=== PATIENT | female | born 1975 | race Caucasian/White ===

== ENCOUNTER 2017-10-18 13:41 | Inpatient (IN) | payer BC ==
[2017-10-18] MEDS ORDERED: FUROSEMIDE 40 MG TABLET PO ONE (14:46)
--- NOTE | 2017-10-18 14:48 | ER Document Report ---
ED Medical Screen (RME) - General Chief Complaint: Swelling of Lower Extremity Stated Complaint: SWELLING Time Seen by Provider: 10/18/17 14:41 - HPI Notes: 10/18/17 14:47 Increased bilateral lower extremity swelling since with shortness of breath patient states history of renal issues currently on hydrochlorothiazide for diuretic Past Medical History - Social History Chew tobacco use (# tins/day): No Frequency of alcohol use: Rare Drug Abuse: None - Past Medical History Cardiac Medical History: Reports: Hx Hypertension Endocrine Medical History: Reports: Hx Diabetes Mellitus Type 2 Renal/ Medical History: Denies: Hx Peritoneal Dialysis Past Surgical History: Reports: Hx Tonsillectomy Review of Systems - Review of Systems Constitutional: Other - Swelling shortness of breath Physical Exam - Vital signs Vitals: Temp Pulse Resp BP Pulse Ox 98.5 F 79 16 202/81 H 95 10/18/17 13:54 10/18/17 13:54 10/18/17 13:54 10/18/17 13:54 10/18/17 13:54 - Respiratory Respiratory status: No respiratory distress Chest status: Nontender Breath sounds: Normal Chest palpation: Normal Course - Vital Signs Vital signs: Temp Pulse Resp BP Pulse Ox 98.5 F 79 16 202/81 H 95 10/18/17 13:54 10/18/17 13:54 10/18/17 13:54 10/18/17 13:54 10/18/17 13:54
--- NOTE | 2017-10-18 15:42 | ER Document Report ---
ED Respiratory Problem - General Chief Complaint: Swelling of Lower Extremity Stated Complaint: SWELLING Time Seen by Provider: 10/18/17 14:41 Mode of Arrival: Ambulatory Information source: Patient Notes: 42 yo female with non smoker, DM2, HTN, anemic in the past, c/o swelling to legs and having trouble breathing since July. Has to sit up to breath at night, with cough, had to stick head in freezer a few times (had slumped down). When she walks across the lawn has to stop to catch breath, fatiqued, gets a flutter , aching dull substernal chest pain - a few times per day for 2 weeks("like a pulled muscle") Kidney function is declining. Swelling goes down while resting but never resolves. PCP: samanta peng. she is adjusting BP meds after the swelling started and HTN not in control. Lisinopril/HCTZ, Hydralazine 50mg BID (new), atenolol 50mg, omeprazole, insulin N 30 bid, regular 2-5 based on accucheck. [place] [employer] [place]. Heavy long periods this year. Denies rectal bleeding or abd. pain Past Medical History - General Information source: Patient - Social History Smoking Status: Never Smoker Chew tobacco use (# tins/day): No Frequency of alcohol use: Rare Drug Abuse: None Occupation: [employer] Lives with: Spouse/Significant other Family History: CAD, DM, Hypertension, Malignancy Patient has suicidal ideation: No Patient has homicidal ideation: No - Medical History Notes: anemia - Past Medical History Cardiac Medical History: Reports: Hx Hypertension Endocrine Medical History: Reports: Hx Diabetes Mellitus Type 2 Renal/ Medical History: Denies: Hx Peritoneal Dialysis Past Surgical History: Reports: Hx Tonsillectomy Review of Systems - Review of Systems Constitutional: No symptoms reported EENT: Other - allergy nasal congestion Cardiovascular: See HPI Respiratory: See HPI Gastrointestinal: No symptoms reported Genitourinary: No symptoms reported Female Genitourinary: No symptoms reported Musculoskeletal: No symptoms reported Skin: No symptoms reported Hematologic/Lymphatic: No symptoms reported Neurological/Psychological: No symptoms reported Physical Exam - Vital signs Vitals: Temp Pulse Resp BP Pulse Ox 98.5 F 79 16 202/81 H 95 10/18/17 13:54 10/18/17 13:54 10/18/17 13:54 10/18/17 13:54 10/18/17 13:54 Interpretation: Hypertensive - General General appearance: Appears well, Alert In distress: None - HEENT Head: Normocephalic, Atraumatic Eyes: Normal Conjunctiva: Normal Pupils: PERRL Mucous membranes: Normal Pharynx: Normal Neck: Supple. No: Lymphadenopathy - Respiratory Respiratory status: No respiratory distress Chest status: Nontender Breath sounds: Normal Chest palpation: Normal - Cardiovascular Rhythm: Regular Heart sounds: Normal auscultation Murmur: No - Abdominal Inspection: Normal Distension: No distension, Other - edema lower abdominal tissue Bowel sounds: Normal Tenderness: Nontender Organomegaly: No organomegaly - Back Back: Normal, Nontender - Extremities General upper extremity: Normal inspection, Nontender, Normal color, Normal temperature General lower extremity: Edema - bilateral legs pitting, extensive edema, Normal temperature, Normal weight bearing. No: Mikael's sign - Neurological Neuro grossly intact: Yes Cognition: Normal Orientation: AAOx4 Jonatan Coma Scale Eye Opening: Spontaneous [place] Coma Scale Verbal: Oriented [place] Coma Scale Motor: Obeys Commands [place] Coma Scale Total: 15 Speech: Normal Motor strength normal: LUE, RUE, LLE, RLE Sensory: Normal - Psychological Associated symptoms: Normal affect, Normal mood - Skin Skin Temperature: Warm Skin Moisture: Dry Skin Color: Normal Skin irregularity: negative: Rash Course - Re-evaluation Re-evalutation: 10/18/17 16:47 Chest x-ray shows mild cardiomegaly with borderline vascular prominence. Small pleural effusions. Creatinine is 1.79, hemaglobin is 8.3 , microcytic. She has not had it checked for 2 years, did have to take iron at that time. BNP is 14,600. Total protein and albumin are low. Troponin is negative. Discussed the case with Dr. Aguila who suggests the patient be admitted 10/18/17 17:01 Dr. Mccollum said to speak with Shavonne Kent for the admission and she will admit the patient to [facility]. - Vital Signs Vital signs: Temp Pulse Resp BP Pulse Ox 98.5 F 79 27 H 204/94 H 98 10/18/17 13:54 10/18/17 13:54 10/18/17 16:01 10/18/17 16:01 10/18/17 16:01 - Laboratory Result Diagrams: 10/18/17 15:30 10/18/17 15:30 Laboratory results interpreted by me: 10/18/17 10/18/17 10/18/17 15:30 15:30 15:30 RBC 3.60 L Hgb 8.3 L Hct 25.8 L MCV 72 L MCH 23.0 L RDW 16.7 H Chloride 112 H BUN 45 H Creatinine 1.79 H Est GFR ( Amer) 37 L Est GFR (Non-Af Amer) 31 L Glucose 178 H Creatine Kinase 280 H NT-Pro-B Natriuret Pep 25956 H Total Protein 5.8 L Albumin 2.8 L TSH 10/18/17 15:30 RBC Hgb Hct MCV MCH RDW Chloride BUN Creatinine Est GFR ( Amer) Est GFR (Non-Af Amer) Glucose Creatine Kinase NT-Pro-B Natriuret Pep Total Protein Albumin TSH 7.21 H Discharge - Discharge Clinical Impression: Peripheral edema, Cardiomegaly Anemia Qualifiers: Anemia type: iron deficiency Iron deficiency anemia type: unspecified iron deficiency Qualified Code(s): D50.9 - Iron deficiency anemia, unspecified Hypertension Qualifiers: Hypertension type: essential hypertension Qualified Code(s): I10 - Essential ( primary) hypertension CHF (congestive heart failure) Qualifiers: Heart failure type: unspecified Heart failure chronicity: unspecified Qualified Code(s): I50.9 - Heart failure, unspecified Hypothyroidism Qualifiers: Hypothyroidism type: unspecified Qualified Code(s): E03.9 - Hypothyroidism, unspecified Condition: Fair Disposition: ADMITTED INPATIENT Admitting Provider: Hospitalist Unit Admitted: [facility]
[2017-10-18 15:51] LABS: ABSOLUTE BASOPHILS # (AUTO) 0.1 10^3/uL (0.0-0.2); ABSOLUTE EOSINOPHILS # (AUTO) 0.1 10^3/uL (0.0-0.6); ABSOLUTE LYMPHOCYTES (AUTO) 1.7 10^3/uL (0.5-4.7); ABSOLUTE MONOCYTES (AUTO) 0.6 10^3/uL (0.1-1.4); ABSOLUTE NEUT (AUTO) 5.7 10^3/uL (1.7-8.2); BASOPHILS % (AUTO) 0.9 % (0-2); EOSINOPHILS % (AUTO) 0.9 % (0-6); HEMATOCRIT 25.8 % (36.0-47.0); HEMOGLOBIN 8.3 g/dL (12.0-15.5); LYMPHOCYTES % (AUTO) 20.4 % (13-45); MEAN CORPUSCULAR VOLUME 72 fl (80-97); MONOCYTES % (AUTO) 7.6 % (3-13); PLATELET COUNT 396 10^3/uL (150-450); RED CELL DISTRIBUTION WIDTH 16.7 % (11.5-14.0); SEGMENTED NEUTROPHILS % (AUTO) 70.2 % (42-78); TOTAL CELLS COUNTED % (AUTO) 100 %; WHITE BLOOD COUNT 8.1 10^3/uL (4.0-10.5)
[2017-10-18 16:02] LABS: ALANINE AMINOTRANSFERASE 21 U/L (9-52); ALBUMIN 2.8 g/dL (3.5-5.0); ALKALINE PHOSPHATASE 80 U/L (38-126); ANION GAP 9 (5-19); ASPARTATE AMINO TRANSFERASE 16 U/L (14-36); BILIRUBIN,DIRECT 0.2 mg/dL (0.0-0.4); BILIRUBIN,TOTAL 0.2 mg/dL (0.2-1.3); BLOOD UREA NITROGEN 45 mg/dL (7-20); CALCIUM 8.5 mg/dL (8.4-10.2); CARBON DIOXIDE 23 mmol/L (22-30); CHLORIDE 112 mmol/L (98-107); CREATINE KINASE 280 U/L (30-135); GLUCOSE 178 mg/dL (75-110); POTASSIUM 4.2 mmol/L (3.6-5.0); TOTAL PROTEIN 5.8 g/dL (6.3-8.2)
[2017-10-18] MEDS ORDERED: ASPIRIN 81 MG TABLET, CHEWABLE PO ONE (16:05)
[2017-10-18 16:14] LABS: CREATINE KINASE MB 2.78 ng/mL (<4.55); NT PRO BNP 14600 pg/mL (<125)
[2017-10-18 16:16] LABS: TROPONIN I < 0.012 ng/mL
--- NOTE | 2017-10-18 16:26 | RADIOLOGY REPORT (SQ) ---
EXAM DESCRIPTION: CHEST 2 VIEWS COMPLETED DATE/TIME: 10/18/2017 4:18 pm REASON FOR STUDY: sob leg swelling COMPARISON: None. EXAM PARAMETERS: NUMBER OF VIEWS: two views TECHNIQUE: Digital Frontal and Lateral radiographic views of the chest acquired. RADIATION DOSE: NA LIMITATIONS: none FINDINGS: LUNGS AND PLEURA: No opacities, masses or pneumothorax. Small bilateral pleural effusions . MEDIASTINUM AND HILAR STRUCTURES: No masses or contour abnormalities. HEART AND VASCULAR STRUCTURES: Mild cardiac enlargement. Borderline vascular prominence. BONES: No acute findings. HARDWARE: None in the chest. OTHER: No other significant finding. IMPRESSION: MILD CARDIOMEGALY WITH BORDERLINE VASCULAR PROMINENCE. SMALL PLEURAL EFFUSIONS. TECHNICAL DOCUMENTATION: JOB ID: [id number] [employer]- All Rights Reserved Reading location - IP/workstation name: [email or web address]
[2017-10-18] MEDS ORDERED: FUROSEMIDE INJ/PF 20 MG/2 ML SDV IV ONE (16:54)
[2017-10-18] MEDS ORDERED: ACETAMINOPHEN 325 MG TABLET PO PRN (17:12)
[2017-10-18] MEDS ORDERED: ONDANSETRON 4 MG TAB.RAPDIS PO PRN (17:12)
[2017-10-18] MEDS ORDERED: DEXTROSE 40% GEL 15 GM TUBE PO PRN ×2 (18:06)
[2017-10-18] MEDS ORDERED: DEXTROSE 50%-WATER 25 GM/50 ML DISP.SYRIN IV PRN ×2 (18:06)
[2017-10-18] MEDS ORDERED: GLUCAGON,HUMAN RECOMB 1 MG INJ IM PRN (18:06)
--- NOTE | 2017-10-18 18:35 | PDOC H&P ---
History of Present Illness Admission Date/PCP: 10/18/17 17:33 ALEIDA GUIDRY MD Patient complains of: Increasing shortness of breath, orthopnea and peripheral edema History of Present Illness: DAMIR LEE is a 42 year old female with past medical history of essential hypertension, dyslipidemia, morbid obesity, diabetes mellitus type 2 on insulin and anemia; who presents to [facility]'s emergency room this afternoon with complaints of increasing shortness of breath, orthopnea and increasing peripheral edema. She states she has had a nonproductive cough for the last 3 weeks. Last night she was unable to sleep lying down. She had to sleep in a recliner. She has had increasing lower extremity edema from pedal to her waist. She has been seeing a provider in [place] for her blood pressure which has been out of control. She states she is also experiencing heavy flow menstrual periods, last was 3 weeks ago. Patient has a significant family history of coronary artery disease in both parents who are from same. Her father from heart failure at 78. Her mother at age 72. She had a brother who age 28 secondary to drug overdose. 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 Past Medical History Cardiac Medical History: Reports: Hyperlipidema, Hypertension Pulmonary Medical History: Reports: None EENT Medical History: Reports: None Neurological Medical History: Reports: None Endocrine Medical History: Reports: Diabetes Mellitus Type 2 Renal/ Medical History: Reports: Chronic Kidney Disease Malignancy Medical History: Reports: None GI Medical History: Reports: None Musculoskeltal Medical History: Reports: None Skin Medical History: Reports: None Psychiatric Medical History: Reports: None Traumatic Medical History: Reports: None Hematology: Reports: Anemia Infectious Medical History: Reports: None Past Surgical History Past Surgical History: Reports: Tonsillectomy Social History Information Source: Patient Lives with: Family, Spouse/Significant other Smoking Status: Never Smoker Frequency of Alcohol Use: Rare Hx Recreational Drug Use: No - Advance Directive Resuscitation Status: Full Code Surrogate healthcare decision maker:: , Khang Family History Family History: CAD, DM, Hypertension, Malignancy Parental Family History Reviewed: Yes Children Family History Reviewed: Yes Sibling(s) Family History Reviewed.: Yes Review of Systems Constitutional: PRESENT: weight gain, other. ABSENT: chills, fever(s), headache (s), weight loss Eyes: ABSENT: visual disturbances Ears: ABSENT: hearing changes Cardiovascular: PRESENT: dyspnea on exertion, edema, orthropnea. ABSENT: chest pain, palpitations Respiratory: PRESENT: cough. ABSENT: hemoptysis Gastrointestinal: ABSENT: abdominal pain, constipation, diarrhea, hematemesis, hematochezia, nausea, vomiting Genitourinary: ABSENT: dysuria, hematuria Musculoskeletal: ABSENT: joint swelling Integumentary: ABSENT: rash, wounds Neurological: ABSENT: abnormal gait, abnormal speech, confusion, dizziness, focal weakness, syncope Psychiatric: ABSENT: anxiety, depression, homidical ideation, suicidal ideation Endocrine: ABSENT: cold intolerance, heat intolerance, polydipsia, polyuria Hematologic/Lymphatic: ABSENT: easy bleeding, easy bruising Physical Exam Vital Signs: Temp Pulse Resp BP Pulse Ox 98.5 F 79 27 H 204/94 H 98 10/18/17 13:54 10/18/17 13:54 10/18/17 16:01 10/18/17 16:01 10/18/17 16:01 General appearance: PRESENT: no acute distress, morbidly obese, well-developed, well-nourished Head exam: PRESENT: atraumatic, normocephalic Eye exam: PRESENT: conjunctiva pink, EOMI, PERRLA. ABSENT: scleral icterus Ear exam: PRESENT: normal external ear exam Mouth exam: PRESENT: moist, tongue midline Neck exam: ABSENT: carotid bruit, JVD, lymphadenopathy, thyromegaly Respiratory exam: PRESENT: crackles - bibasilar, symmetrical, unlabored Cardiovascular exam: PRESENT: RRR. ABSENT: diastolic murmur, rubs, systolic murmur Pulses: PRESENT: normal dorsalis pedis pul Vascular exam: PRESENT: normal capillary refill GI/Abdominal exam: PRESENT: normal bowel sounds, soft. ABSENT: distended, guarding, mass, organolmegaly, rebound, tenderness Rectal exam: PRESENT: deferred Extremities exam: PRESENT: other - +3 edema from pedal to mid thighs Musculoskeletal exam: PRESENT: ambulatory, full ROM, normal inspection Neurological exam: PRESENT: alert, awake, oriented to person, oriented to place , oriented to time, oriented to situation, CN II-XII grossly intact. ABSENT: motor sensory deficit Psychiatric exam: PRESENT: appropriate affect, normal mood. ABSENT: homicidal ideation, suicidal ideation Skin exam: PRESENT: dry, intact, warm. ABSENT: cyanosis, rash Results Impressions: Chest X-Ray 10/18/17 14:46 IMPRESSION: MILD CARDIOMEGALY WITH BORDERLINE VASCULAR PROMINENCE. SMALL PLEURAL EFFUSIONS. Assessment & Plan - Diagnosis (1) CHF (congestive heart failure) Qualifiers: Heart failure type: unspecified Heart failure chronicity: unspecified Qualified Code(s): I50.9 - Heart failure, unspecified Is this a current diagnosis for this admission?: Yes Plan: We will aggressively diuresed with Lasix 40 mg IV [place] [address]. He has had poorly controlled hypertension. Has been following with a primary care provider in [place] regularly. She has noted a 15-20 pound weight gain in the last month. She now has orthopnea. She spent last night sleeping in a recliner. She has had a nonproductive cough for the last 3 weeks. Cardiology consult was placed. Dr. Paniagua will see the patient in consult. His thoracic echo was ordered. (2) Hypertension Qualifiers: Hypertension type: essential hypertension Qualified Code(s): I10 - Essential (primary) hypertension Is this a current diagnosis for this admission?: Yes Plan: Patient will be placed on metoprolol 50 mg twice daily, losartan 50 mg daily and hydralazine 10 mg IV every 6 hours as needed for systolic BP greater than 180. (3) Cardiomegaly Is this a current diagnosis for this admission?: Yes Plan: Cardiomegaly on chest x-ray. Increased pulmonary vascular congestion. Echo is pending (4) Anemia Qualifiers: Anemia type: iron deficiency Iron deficiency anemia type: unspecified iron deficiency Qualified Code(s): D50.9 - Iron deficiency anemia, unspecified Is this a current diagnosis for this admission?: Yes Plan: Patient has had a history of iron deficiency anemia as well as menorrhagia for the last year. Anemia studies are placed for the a.m. (5) Hypothyroidism Qualifiers: Hypothyroidism type: unspecified Qualified Code(s): E03.9 - Hypothyroidism , unspecified Is this a current diagnosis for this admission?: Yes Plan: She has an elevated TSH of 7.4, obtained free T3 and T4 in the a.m. (6) Peripheral edema Is this a current diagnosis for this admission?: Yes Plan: Aimee franklin (7) Diabetes mellitus type 2 in obese Is this a current diagnosis for this admission?: Yes Plan: Continue patient's insulin dose and sliding scale insulin coverage - Time Time Spent: 50 to 70 Minutes Critical Time spent with patient: 25-34 minutes Medications reviewed and adjusted accordingly: Yes - Inpatient Certification Based on my medical assessment, after consideration of the patient's comorbidities, presenting symptoms, or acuity I expect that the services needed warrant INPATIENT care.: Yes I certify that my determination is in accordance with my understanding of Medicare's requirements for reasonable and necessary INPATIENT services [42 CFR 412.3e].: Yes Medical Necessity: Failure to Improve With Outpatient Therapy, Significant Comorbidiites Make Outpatient Treatment Too Risky
--- NOTE | 2017-10-18 18:54 | PDOC CONSULTATION ---
Consultation Consult Date: 10/18/17 Attending physician:: KORY CLAROS Consult reason:: Shortness of breath and severe hypertension History of Present Illness Admission Date/PCP: 10/18/17 17:33 ALEIDA GUIDRY MD Patient complains of: Shortness of breath and severe hypertension History of Present Illness: DAMIR LEE is a 42 year old female with past medical history of essential hypertension, dyslipidemia, morbid obesity, diabetes mellitus type 2 on insulin and anemia; who presents to [facility]'s emergency room this afternoon with complaints of increasing shortness of breath, orthopnea and increasing peripheral edema. She states she has had a nonproductive cough for the last 3 weeks. Last night she was unable to sleep lying down. She had to sleep in a recliner. She has had increasing lower extremity edema from pedal to her waist. She has been seeing a provider in [place] for her blood pressure which has been out of control. She states she is also experiencing heavy flow menstrual periods, last was 3 weeks ago. Patient has a significant family history of coronary artery disease in both parents who are from [place]. Her father from heart failure at 78. Her mother at age 72. She had a brother who age 28 secondary to drug overdose. 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 This history obtained by the hospitalist was reviewed and confirmed. Patient has difficult to control high blood pressure. Patient denied any recent fever or chills. Patient denies any chest pain. Patient describes some difficulty with staying asleep. She does snore but lightly. Past Medical History Cardiac Medical History: Reports: Hyperlipidema, Hypertension Pulmonary Medical History: Reports: None EENT Medical History: Reports: None Neurological Medical History: Reports: None Endocrine Medical History: Reports: Diabetes Mellitus Type 2 Renal/ Medical History: Reports: Chronic Kidney Disease Malignancy Medical History: Reports: None GI Medical History: Reports: None Musculoskeltal Medical History: Reports: None Skin Medical History: Reports: None Psychiatric Medical History: Reports: None Traumatic Medical History: Reports: None Hematology: Reports: Anemia Infectious Medical History: Reports: None Past Surgical History Past Surgical History: Reports: Tonsillectomy Social History Information Source: Patient Lives with: Family, Spouse/Significant other Smoking Status: Never Smoker Frequency of Alcohol Use: Rare Hx Recreational Drug Use: No - Advance Directive Resuscitation Status: Full Code Surrogate healthcare decision maker:: Patient's is the surrogate decision-maker Family History Family History: CAD, DM, Hypertension, Malignancy Parental Family History Reviewed: Yes Children Family History Reviewed: Yes Sibling(s) Family History Reviewed.: Yes Review of Systems Review of Systems: Please see history of present illness and past medical history as wall. Constitutional: No fever or chills reported. Complains of fatigue and tiredness. Head : No recent chronic headaches, recent head injury. Eyes: No recent eye pain, diplopia, redness, discharge, acute visual changes. Ears: No recent chronic ear pain, acute hearing loss, ear discharge. Oral cavity: No recent ulcerations, bleeding, oral cavity discomfort. Neck: No recent acute neck pain reported. Hematologic: No recent easy bruising or bleeding. Lymphatic: No recent lymph node enlargement reported. Cardiovascular system review: See history of present illness. Respiratory system review: No hemoptysis or blood clots in the lungs reported. Mild Shortness of breath on exertion Gastrointestinal system review: Negative for any recent acute hematemesis, melena. Genitourinary system review: No recent acute or chronic hematuria, flank pain, UTI etc. reported. Skin system review: Negative for any recent abnormal bruising, no rash, no pruritus reported. Neurologic: No prior history of strokes, mini strokes, seizure disorder. Psychologic: No history of major psychosis or major depression reported. Musculoskeletal: Minor aches and pains reported. No acute joint swelling reported. Endocrine: No recent polyuria, polydipsia, recent heat or cold intolerance. Physical Exam Vital Signs: Temp Pulse Resp BP Pulse Ox 98.5 F 79 27 H 204/94 H 98 10/18/17 13:54 10/18/17 13:54 10/18/17 16:01 10/18/17 16:01 10/18/17 16:01 Exam: GENERAL: well-nourished and in no acute distress. Alert and oriented x3 HEAD: Atraumatic, normocephalic. EYES: Pupils equal round and reactive to light, extraocular movements intact, sclera anicteric, conjunctiva are normal. ENT: TMs normal, nares patent, oropharynx clear without exudates. Moist mucous membranes. No oral ulcerations or bleeding gums noted NECK: supple without lymphadenopathy. Trachea is central. No cervical or axillary lymphadenopathy noted. Carotids are 2+, JVD 10-12 cm LUNGS: Respiration seems nonlabored, no significant accessory muscle action noted. Bibasilar fine crackles are noted. No wheezes rales or rhonchi noted. No significant dullness noted on percussion. CHEST: Palpation of the chest wall shows no significant chest wall tenderness. HEART: [place]OV[place] HAULER, No PSH, 1/6 KARAN aortic area, 1/6 rivero systolic murmur mitral area, no rubs, no gallops. ABDOMEN: Soft, no significant tenderness appreciated, normoactive bowel sounds. No guarding, no rebound. No rigidity noted . No masses appreciated. EXTREMITIES: Pedal pulses are 1-2+, no calf tenderness noted. No clubbing or cyanosis. 2-3+ pedal edema noted NEUROLOGICAL: Focused neurological exam showed no significant neurologic deficit. Normal speech, no focal weakness appreciated. PSYCH: Normal mood, normal affect. Judgment and insight within normal limits. SKIN: No significant ecchymosis, skin is noted to be warm. MUSCULOSKELETAL EXAM: No significant acute joint swelling noted. Results EKG Comments: Sinus rhythm, nonprogression of R-wave anterior precordial lead, cannot rule out prior anteroseptal IA or anterior IA age indeterminate. Impressions: Chest X-Ray 10/18/17 14:46 IMPRESSION: MILD CARDIOMEGALY WITH BORDERLINE VASCULAR PROMINENCE. SMALL PLEURAL EFFUSIONS. Assessment & Plan - Diagnosis (1) CHF (congestive heart failure) Qualifiers: Heart failure type: unspecified Heart failure chronicity: unspecified Qualified Code(s): I50.9 - Heart failure, unspecified Is this a current diagnosis for this admission?: Yes (2) Cardiomegaly Is this a current diagnosis for this admission?: Yes (3) Diabetes mellitus type 2 in obese Is this a current diagnosis for this admission?: Yes (4) Hypertension Qualifiers: Hypertension type: essential hypertension Qualified Code(s): I10 - Essential (primary) hypertension Is this a current diagnosis for this admission?: Yes (5) Peripheral edema Is this a current diagnosis for this admission?: Yes (6) Renal insufficiency Is this a current diagnosis for this admission?: Yes (7) Anemia Qualifiers: Anemia type: iron deficiency Iron deficiency anemia type: unspecified iron deficiency Qualified Code(s): D50.9 - Iron deficiency anemia, unspecified Is this a current diagnosis for this admission?: Yes - Notes Notes: CHF: Patient noted to be in CHF based on symptoms, elevated BNP, pulmonary vascular congestion and cardiomegaly. Exact etiology not clear but could be related to hypertensive heart disease, systolic and/or diastolic dysfunction, valvular heart disease. A 2D echocardiogram will be obtained to evaluate this. In the meantime agree with IV diuretic therapy, maintain oxygenation, DVT prophylaxis etc. Cardiomegaly: Noted on chest x-ray. To be evaluated further with a 2D echocardiogram. Diabetes: Recommend good control of blood sugar. However should avoid any hypoglycemia and hyperglycemia. Patient being expertly managed by primary care M.D/hospitalist Hypertension: Reasonably well controlled. Blood pressure goal in this patient is 135/85 or less. This was discussed with the patient. Currently blood pressure under reasonable control. Better medication for this patient are ROSALIND inhibitor/ARB/beta cookie etc. discussed side effects of uncontrolled hypertension and also severe hypotension. Renal insufficiency: Patient seems to have chronic kidney disease stage 3. Avoid any nephrotoxic agents, IV contrast agent dye etc. consider nephrology evaluation. Presence of chronic kidney disease is a prognostic factor. Anemia: Patient describes heavy menstruation bleed. Follow expectantly. May recommend evaluation for iron insufficiency. - Time Time Spent: 30 to 50 Minutes - CODE STATUS was discussed, patient remains full code. Surrogate decision-maker unchanged. Multiple medical problems were addressed. More than 50% of the time spent coordinating care, discussing management plans with involved caregivers. Management plans discussed with involved personnels. Medical decision making was of moderate to high complexity , patient's has multiple comorbidities. Medications reviewed and adjusted accordingly: Yes
[2017-10-18 20:28] LABS: APPEARANCE,URINE CLEAR; BILIRUBIN,URINE NEGATIVE (NEGATIVE); COLOR,URINE STRAW; GLUCOSE, URINE 150 mg/dL (NEGATIVE); KETONES,URINE NEGATIVE (NEGATIVE); LEUKOCYTE ESTERASE,URINE TRACE (NEGATIVE); NITRITE,URINE NEGATIVE (NEGATIVE); PROTEIN,URINE 100 mg/dL (NEGATIVE); URINE SPECIFIC GRAVITY 1.008; UROBILINOGEN,URINE NEGATIVE mg/dL (<2.0)
[2017-10-18] MEDS: FUROSEMIDE INJ/PF 40 MG/4 ML SDV IV SCH (21:01)
[2017-10-18] MEDS: FAMOTIDINE 20 MG TABLET PO SCH (21:10)
[2017-10-18] MEDS: HEPARIN SOD (PORCINE) 5,000 UNIT/ML 1 ML SYRINGE SUBCUT SCH (21:10)
[2017-10-18] MEDS: METOPROLOL TARTRATE 50 MG TABLET PO SCH (21:10)
--- NOTE | 2017-10-18 22:55 | EKG REPORT ---
SEVERITY:- ABNORMAL ECG - SINUS RHYTHM BORDERLINE R WAVE PROGRESSION, ANTERIOR LEADS NONSPECIFIC T ABNORMALITIES, LATERAL LEADS BORDERLINE PROLONGED QT INTERVAL : Confirmed by: Oriana Paniagua 18-Oct-2017 22:54:48
[2017-10-18] MEDS: HYDRALAZINE HCL INJ/PF 20 MG/1 ML SDV IV PRN (23:08)
[2017-10-19] MEDS: HEPARIN SOD (PORCINE) 5,000 UNIT/ML 1 ML SYRINGE SUBCUT SCH ×3 (05:43→21:53)
[2017-10-19 07:15] LABS: ABSOLUTE EOSINOPHILS # (AUTO) 0.1 10^3/uL (0.0-0.6); ABSOLUTE LYMPHOCYTES (AUTO) 1.2 10^3/uL (0.5-4.7); ABSOLUTE MONOCYTES (AUTO) 0.6 10^3/uL (0.1-1.4); ABSOLUTE NEUT (AUTO) 3.6 10^3/uL (1.7-8.2); ABSOLUTE RETICS # 0.054 10^6/uL (0.028-0.122); BASOPHILS % (AUTO) 0.9 % (0-2); EOSINOPHILS % (AUTO) 1.7 % (0-6); HEMATOCRIT 25.1 % (36.0-47.0); LYMPHOCYTES % (AUTO) 21.6 % (13-45); MEAN CORPUSCULAR HEMOGLOBIN 22.7 pg (27.0-33.4); MEAN CORPUSCULAR HGB CONC 31.7 g/dL (32.0-36.0); MEAN CORPUSCULAR VOLUME 72 fl (80-97); MONOCYTES % (AUTO) 10.5 % (3-13); PLATELET COUNT 341 10^3/uL (150-450); RED BLOOD COUNT 3.51 10^6/uL (3.72-5.28); RED CELL DISTRIBUTION WIDTH 16.5 % (11.5-14.0); RETICULOCYTE COUNT (AUTO) 1.54 % (0.66-2.85); SEGMENTED NEUTROPHILS % (AUTO) 65.3 % (42-78); TOTAL CELLS COUNTED % (AUTO) 100 %; WHITE BLOOD COUNT 5.6 10^3/uL (4.0-10.5)
[2017-10-19 07:35] LABS: ANION GAP 9 (5-19); BLOOD UREA NITROGEN 48 mg/dL (7-20); CALCIUM 8.6 mg/dL (8.4-10.2); CARBON DIOXIDE 24 mmol/L (22-30); CHLORIDE 112 mmol/L (98-107); CHOLESTEROL 248.67 mg/dL (0-200); GLUCOSE 176 mg/dL (75-110); IRON(TIBC) 15.8 ug/dL (37-170); POTASSIUM 4.1 mmol/L (3.6-5.0); SODIUM 144.5 mmol/L (137-145); TRIGLYCERIDES 173 mg/dL (<150)
[2017-10-19 07:47] LABS: DIRECT LDL 161 mg/dL (<100)
[2017-10-19 07:53] LABS: TROPONIN I 0.015 ng/mL
[2017-10-19] MEDS: HYDRALAZINE HCL INJ/PF 20 MG/1 ML SDV IV PRN (08:18)
[2017-10-19 08:44] LABS: VLDL CHOLESTEROL 34.6 mg/dL (10-31)
[2017-10-19] MEDS: METOPROLOL TARTRATE 50 MG TABLET PO SCH ×2 (09:05→21:53)
[2017-10-19] MEDS: FUROSEMIDE INJ/PF 40 MG/4 ML SDV IV SCH ×2 (09:06→21:57)
[2017-10-19] MEDS: FAMOTIDINE 20 MG TABLET PO SCH ×2 (09:06→21:58)
[2017-10-19] MEDS: LOSARTAN POTASSIUM 50 MG TABLET PO SCH (09:06)
[2017-10-19] MEDS: ASPIRIN 81 MG TABLET, ENT COATED PO SCH (09:06)
[2017-10-19] MEDS: INSULIN LISPRO 100 UNIT/ML 3 ML VIAL SUBCUT PRN ×3 (09:07→22:03)
[2017-10-19 09:32] LABS: FREE T4 (FREE THYROXINE) 1.29 ng/dL (0.78-2.19)
[2017-10-19 09:45] LABS: THYROID STIMULATING HORMONE 4.78 uIU/mL (0.47-4.68)
[2017-10-19] MEDS ORDERED: GLUCAGON,HUMAN RECOMB 1 MG INJ IM PRN (10:53)
[2017-10-19] MEDS ORDERED: DEXTROSE 50%-WATER 25 GM/50 ML DISP.SYRIN IV PRN ×2 (10:53)
[2017-10-19] MEDS ORDERED: DEXTROSE 40% GEL 15 GM TUBE PO PRN ×2 (10:53)
[2017-10-19] MEDS: IRON POLYSACCHARIDES COMPLEX 150 MG CAPSULE PO SCH (14:49)
[2017-10-19] MEDS: MAGNESIUM SULFATE/D5W 1 GM/100 ML RTUPB IV SCH ×2 (14:52→16:04)
--- NOTE | 2017-10-19 17:20 | PDOC PROGRESS REPORT ---
Subjective Progress Note for:: 10/19/17 Subjective:: Patient is seen resting in bed. She states she is tired but otherwise feels better than admission. She denies any chest pain or dyspnea at rest. She is short of breath with exertion. She denies any nausea, vomiting or abdominal pain. She denies any fevers or chills. She denies any significant arthralgias or myalgias. Remaining review of systems is negative Reason For Visit: HEART FAILURE,HYPERTENSIVE URGENCY Physical Exam Vital Signs: Temp Pulse Resp BP Pulse Ox 98.0 F 78 16 153/72 H 99 10/19/17 12:01 10/19/17 14:00 10/19/17 12:01 10/19/17 12:01 10/19/17 12:01 Intake & Output 10/18/17 10/19/17 10/20/17 06:59 06:59 06:59 Intake Total 371 200 Output Total 2500 1000 Balance -2129 -800 Weight 113 kg General appearance: PRESENT: no acute distress, morbidly obese, well-developed, well-nourished Head exam: PRESENT: atraumatic, normocephalic Eye exam: PRESENT: conjunctiva pink, EOMI, PERRLA. ABSENT: scleral icterus Ear exam: PRESENT: normal external ear exam Mouth exam: PRESENT: moist, tongue midline Neck exam: ABSENT: carotid bruit, JVD, lymphadenopathy, thyromegaly Respiratory exam: PRESENT: decreased breath sounds, symmetrical, unlabored Cardiovascular exam: PRESENT: +S1, +S2 Pulses: PRESENT: normal carotid pulses, normal radial pulses Vascular exam: PRESENT: normal capillary refill GI/Abdominal exam: PRESENT: normal bowel sounds, soft. ABSENT: distended, guarding, mass, organolmegaly, rebound, tenderness Rectal exam: PRESENT: deferred Extremities exam: PRESENT: full ROM. ABSENT: calf tenderness, clubbing, pedal edema Neurological exam: PRESENT: alert, awake, oriented to person, oriented to place , oriented to time, oriented to situation, CN II-XII grossly intact. ABSENT: motor sensory deficit Psychiatric exam: PRESENT: appropriate affect, normal mood. ABSENT: homicidal ideation, suicidal ideation Skin exam: PRESENT: dry, intact, warm. ABSENT: cyanosis, rash Results Laboratory Results: 10/19/17 06:43 10/19/17 06:43 10/18/17 10/19/17 10/19/17 20:05 06:43 06:43 WBC 5.6 RBC 3.51 L Hgb 8.0 L Hct 25.1 L MCV 72 L MCH 22.7 L MCHC 31.7 L RDW 16.5 H Plt Count 341 Seg Neutrophils % 65.3 Lymphocytes % 21.6 Monocytes % 10.5 Eosinophils % 1.7 Basophils % 0.9 Absolute Neutrophils 3.6 Absolute Lymphocytes 1.2 Absolute Monocytes 0.6 Absolute Eosinophils 0.1 Absolute Basophils 0.0 Retic Count (auto) 1.54 Absolute Retic 0.054 Sodium 144.5 Potassium 4.1 Chloride 112 H Carbon Dioxide 24 Anion Gap 9 BUN 48 H Creatinine 1.81 H Est GFR ( Amer) 37 L Est GFR (Non-Af Amer) 31 L Glucose 176 H Calcium 8.6 Magnesium 1.5 L Iron 15.8 L TIBC 282 % Saturation 6 Ferritin 10.60 Triglycerides 173 H Cholesterol 248.67 H LDL Cholesterol Direct 161 H VLDL Cholesterol 34.6 H HDL Cholesterol 56 Vitamin B12 311.0 Folate 10.70 TSH Free T4 Free T3 pg/mL Urine Color STRAW Urine Appearance CLEAR Urine pH 6.0 Ur Specific [place] 1.008 Urine Protein 100 H Urine Glucose (UA) 150 H Urine Ketones NEGATIVE Urine Blood SMALL H Urine Nitrite NEGATIVE Ur Leukocyte Esterase TRACE H Urine WBC (Auto) 3 Urine RBC (Auto) 2 10/19/17 06:43 WBC RBC Hgb Hct MCV MCH MCHC RDW Plt Count Seg Neutrophils % Lymphocytes % Monocytes % Eosinophils % Basophils % Absolute Neutrophils Absolute Lymphocytes Absolute Monocytes Absolute Eosinophils Absolute Basophils Retic Count (auto) Absolute Retic Sodium Potassium Chloride Carbon Dioxide Anion Gap BUN Creatinine Est GFR ( Amer) Est GFR (Non-Af Amer) Glucose Calcium Magnesium Iron TIBC % Saturation Ferritin Triglycerides Cholesterol LDL Cholesterol Direct VLDL Cholesterol HDL Cholesterol Vitamin B12 Folate TSH 4.78 H Free T4 1.29 Free T3 pg/mL 4.00 Urine Color Urine Appearance Urine pH Ur Specific [place] Urine Protein Urine Glucose (UA) Urine Ketones Urine Blood Urine Nitrite Ur Leukocyte Esterase Urine WBC (Auto) Urine RBC (Auto) 10/18/17 10/19/17 10/19/17 19:15 00:58 06:43 Troponin I < 0.012 0.012 0.015 NT-Pro-B Natriuret Pep 72813 H 10/19/17 12:32 Troponin I 0.016 NT-Pro-B Natriuret Pep Impressions: Chest X-Ray 10/18/17 14:46 IMPRESSION: MILD CARDIOMEGALY WITH BORDERLINE VASCULAR PROMINENCE. SMALL PLEURAL EFFUSIONS. Assessment & Plan - Diagnosis (1) CHF (congestive heart failure) Qualifiers: Heart failure type: unspecified Heart failure chronicity: unspecified Qualified Code(s): I50.9 - Heart failure, unspecified Is this a current diagnosis for this admission?: Yes Plan: We will aggressively diuresed with Lasix 40 mg IV [place] [address]. He has had poorly controlled hypertension. Has been following with a primary care provider in [place] regularly. She has noted a 15-20 pound weight gain in the last month. She now has orthopnea. She has been sleeping in a chair at home She has had a nonproductive cough for the last 3 weeks. Cardiology consult was placed. Dr. Paniagua will see the patient in consult. Transthoracic echo was ordered. (2) Hypertension Qualifiers: Hypertension type: essential hypertension Qualified Code(s): I10 - Essential (primary) hypertension Is this a current diagnosis for this admission?: Yes Plan: Patient will be placed on metoprolol 50 mg twice daily, losartan 50 mg daily and hydralazine 10 mg IV every 6 hours as needed for systolic BP greater than 180. (3) Cardiomegaly Is this a current diagnosis for this admission?: Yes Plan: Cardiomegaly on chest x-ray. Increased pulmonary vascular congestion. Echo is pending (4) Anemia Qualifiers: Anemia type: iron deficiency Iron deficiency anemia type: unspecified iron deficiency Qualified Code(s): D50.9 - Iron deficiency anemia, unspecified Is this a current diagnosis for this admission?: Yes Plan: Patient has had a history of iron deficiency anemia as well as menorrhagia for the last year. Anemia studies are placed for the a.m. (5) Hypothyroidism Qualifiers: Hypothyroidism type: unspecified Qualified Code(s): E03.9 - Hypothyroidism , unspecified Is this a current diagnosis for this admission?: Yes Plan: She has an elevated TSH of 7.4, obtained free T3 and T4 in the a.m. (6) Peripheral edema Is this a current diagnosis for this admission?: Yes Plan: Diurese bid (7) Diabetes mellitus type 2 in obese Is this a current diagnosis for this admission?: Yes Plan: Continue patient's insulin dose and sliding scale insulin coverage - Time Time Spent with patient: 25-34 minutes Total Critical Time (Minutes): 20 Medications reviewed and adjusted accordingly: Yes - Inpatient Certification Based on my medical assessment, after consideration of the patient's comorbidities, presenting symptoms, or acuity I expect that the services needed warrant INPATIENT care.: Yes I certify that my determination is in accordance with my understanding of Medicare's requirements for reasonable and necessary INPATIENT services [42 CFR 412.3e].: Yes Medical Necessity: Failure to Improve With Outpatient Therapy, Significant Comorbidiites Make Outpatient Treatment Too Risky, Need Close Monitoring Due to Risk of Patient Decompensation
--- NOTE | 2017-10-19 17:37 | XCELERA REPORT ---
[address] [address] Transthoracic Echocardiogram Report Name: DAMIR LEE Age: 42 yrs Gender: Female : 1975 Patient Status: Inpatient Patient Location: [address] [place] [address] Study Date: 10/19/2017 03:01 PM Procedure: A complete two-dimensional transthoracic echocardiogram was performed (2D, M-mode, spectral and color flow Doppler). The study was technically adequate with some images being suboptimal in quality. Reason For Study: Cardiomegaly, increasing peripheral edema Ordering Physician: KORY JIMENEZ Performed By: Lin Alvarez Interpretation Summary The left ventricular ejection fraction is within normal limits. There is mild to moderate concentric left ventricular hypertrophy. The left ventricle is grossly normal size. Doppler measurements suggest pseudonormalized left ventricular relaxation, which is associated with grade II/IV or mild to moderate diastolic dysfunction Wall motion cannot be accurately commented on, but no definite regional wall motion abnormalities noted. The right ventricle is grossly normal size. The right ventricular systolic function is normal. The right atrium is normal in size The left atrium is mildly dilated. There is no mitral valve stenosis. There is a trace amount of mitral regurgitation No aortic regurgitation is present. There is no aortic valve stenosis There is a trace to mild amount of tricuspid regurgitation There is mild to moderate pulmonary hypertension by echo Right ventricular systolic pressure is estimated to be elevated at 40- 50mmHg. The aortic root is not well visualized but is probably normal size. The inferior vena cava was not well visualized Small pericardial effusion. There are no echocardiographic or Doppler indications for cardiac tamponade MMode/2D Measurements & Calculations RVDd: 3.1 cm LVIDd: 5.6 cmFS: 31.7 % Ao root diam: 2.3 cm IVSd: 1.1 cm LVIDs: 3.8 cmEDV(Teich): 151.9 ml Ao root area: 4.1 cm2 LVPWd: 1.3 cmESV(Teich): 62.1 ml EF(Teich): 59.1 % LVOT diam: 1.3 cm LVOT area: 1.3 cm2 Doppler Measurements & Calculations MV E max lyle: MV dec slope: Ao V2 max: LV V1 max P.4 cm/sec 146.0 cm/sec 6.1 mmHg MV A max lyle: 553.0 cm/sec2 Ao max PG: LV V1 max: 101.8 cm/sec MV dec time: 8.5 mmHg 123.8 cm/sec MV E/A: 0.98 0.18 sec JIM(V,D): 1.1 cm2 PA V2 max: TR max lyle: 109.8 cm/sec 312.9 cm/sec PA max P.8 mmHgTR max P.2 mmHg Left Ventricle The left ventricle is grossly normal size. There is mild to moderate concentric left ventricular hypertrophy. The left ventricular ejection fraction is within normal limits. Doppler measurements suggest pseudonormalized left ventricular relaxation, which is associated with grade II/IV or mild to moderate diastolic dysfunction. Wall motion cannot be accurately commented on, but no definite regional wall motion abnormalities noted. Right Ventricle The right ventricle is grossly normal size. There is normal right ventricular wall thickness. The right ventricular systolic function is normal. Atria The right atrium is normal in size. The left atrium is mildly dilated. Interarterial septum not well visualized and not well dopplered. Cannot comment on ASD/PFO presence. Mitral Valve The mitral valve is grossly normal. There is no mitral valve stenosis. There is a trace amount of mitral regurgitation. Aortic Valve The aortic valve is grossly normal. There is no aortic valve stenosis. No aortic regurgitation is present. Tricuspid Valve The tricuspid valve is not well visualized, but is grossly normal. There is no tricuspid stenosis. There is a trace to mild amount of tricuspid regurgitation. There is mild to moderate pulmonary hypertension by echo. Right ventricular systolic pressure is estimated to be elevated at 40- 50mmHg. Pulmonic Valve The pulmonic valve is not well visualized. Great Vessels The aortic root is not well visualized but is probably normal size. The inferior vena cava was not well visualized. Effusions Small pericardial effusion. There are no echocardiographic or Doppler indications for cardiac tamponade. : KORY JIMENEZ > Oriana Paniagua
--- NOTE | 2017-10-19 20:22 | PDOC PROGRESS REPORT ---
Subjective Progress Note for:: 10/19/17 Subjective:: Patient seems to be doing better with gradual improvement. Pt is denying any chest arm or neck discomfort. Patient denying any PND, orthopnea. Patient denied any sustained palpitations, dizziness, syncope, near syncope. Patient denying any fever chills. Patient denying any other significant discomfort. Patient is maintaining sinus rhythm. Review of systems: Rest review of systems negative. Medications: Medications have been reviewed. Reason For Visit: HEART FAILURE,HYPERTENSIVE URGENCY Physical Exam Vital Signs: Temp Pulse Resp BP Pulse Ox 98.0 F 78 16 153/72 H 99 10/19/17 12:01 10/19/17 14:00 10/19/17 12:01 10/19/17 12:01 10/19/17 12:01 Intake & Output 10/18/17 10/19/17 10/20/17 06:59 06:59 06:59 Intake Total 371 866 Output Total 2500 1600 Balance -2129 -734 Weight 113 kg 113 kg Exam: GENERAL: well-nourished and in no acute distress. Alert and oriented x3 HEAD: Atraumatic, normocephalic. EYES: Pupils equal round and reactive to light, extraocular movements intact, sclera anicteric, conjunctiva are normal. ENT: TMs normal, nares patent, oropharynx clear without exudates. Moist mucous membranes. No oral ulcerations or bleeding gums noted NECK: supple without lymphadenopathy. Trachea is central. No cervical or axillary lymphadenopathy noted. Carotids are 2+, JVD WNL LUNGS: Respiration seems nonlabored, no significant accessory muscle action noted. Breath sounds clear to auscultation bilaterally and equal noted. No wheezes rales or rhonchi noted. No significant dullness noted on percussion. CHEST: Palpation of the chest wall shows no significant chest wall tenderness. 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 ABDOMEN: Soft, no significant tenderness appreciated, normoactive bowel sounds. No guarding, no rebound. No rigidity noted . No masses appreciated. EXTREMITIES: Pedal pulses are 1-2+, no calf tenderness noted. No clubbing or cyanosis. 1+ pedal edema noted NEUROLOGICAL: Focused neurological exam showed no significant neurologic deficit. Normal speech, no focal weakness appreciated. PSYCH: Normal mood, normal affect. Judgment and insight within normal limits. SKIN: No significant ecchymosis, skin is noted to be warm. MUSCULOSKELETAL EXAM: No significant acute joint swelling noted. Results Laboratory Results: 10/19/17 06:43 10/19/17 06:43 10/18/17 10/19/17 10/19/17 20:05 06:43 06:43 WBC 5.6 RBC 3.51 L Hgb 8.0 L Hct 25.1 L MCV 72 L MCH 22.7 L MCHC 31.7 L RDW 16.5 H Plt Count 341 Seg Neutrophils % 65.3 Lymphocytes % 21.6 Monocytes % 10.5 Eosinophils % 1.7 Basophils % 0.9 Absolute Neutrophils 3.6 Absolute Lymphocytes 1.2 Absolute Monocytes 0.6 Absolute Eosinophils 0.1 Absolute Basophils 0.0 Retic Count (auto) 1.54 Absolute Retic 0.054 Sodium 144.5 Potassium 4.1 Chloride 112 H Carbon Dioxide 24 Anion Gap 9 BUN 48 H Creatinine 1.81 H Est GFR ( Amer) 37 L Est GFR (Non-Af Amer) 31 L Glucose 176 H Calcium 8.6 Magnesium 1.5 L Iron 15.8 L TIBC 282 % Saturation 6 Ferritin 10.60 Triglycerides 173 H Cholesterol 248.67 H LDL Cholesterol Direct 161 H VLDL Cholesterol 34.6 H HDL Cholesterol 56 Vitamin B12 311.0 Folate 10.70 TSH Free T4 Free T3 pg/mL Urine Color STRAW Urine Appearance CLEAR Urine pH 6.0 Ur Specific [place] 1.008 Urine Protein 100 H Urine Glucose (UA) 150 H Urine Ketones NEGATIVE Urine Blood SMALL H Urine Nitrite NEGATIVE Ur Leukocyte Esterase TRACE H Urine WBC (Auto) 3 Urine RBC (Auto) 2 10/19/17 06:43 WBC RBC Hgb Hct MCV MCH MCHC RDW Plt Count Seg Neutrophils % Lymphocytes % Monocytes % Eosinophils % Basophils % Absolute Neutrophils Absolute Lymphocytes Absolute Monocytes Absolute Eosinophils Absolute Basophils Retic Count (auto) Absolute Retic Sodium Potassium Chloride Carbon Dioxide Anion Gap BUN Creatinine Est GFR ( Amer) Est GFR (Non-Af Amer) Glucose Calcium Magnesium Iron TIBC % Saturation Ferritin Triglycerides Cholesterol LDL Cholesterol Direct VLDL Cholesterol HDL Cholesterol Vitamin B12 Folate TSH 4.78 H Free T4 1.29 Free T3 pg/mL 4.00 Urine Color Urine Appearance Urine pH Ur Specific [place] Urine Protein Urine Glucose (UA) Urine Ketones Urine Blood Urine Nitrite Ur Leukocyte Esterase Urine WBC (Auto) Urine RBC (Auto) 10/18/17 10/19/17 10/19/17 19:15 00:58 06:43 Troponin I < 0.012 0.012 0.015 NT-Pro-B Natriuret Pep 15149 H 10/19/17 12:32 Troponin I 0.016 NT-Pro-B Natriuret Pep Impressions: Chest X-Ray 10/18/17 14:46 IMPRESSION: MILD CARDIOMEGALY WITH BORDERLINE VASCULAR PROMINENCE. SMALL PLEURAL EFFUSIONS. Assessment & Plan - Diagnosis (1) CHF (congestive heart failure) Qualifiers: Heart failure type: unspecified Heart failure chronicity: unspecified Qualified Code(s): I50.9 - Heart failure, unspecified Is this a current diagnosis for this admission?: Yes (2) Cardiomegaly Is this a current diagnosis for this admission?: Yes (3) Diabetes mellitus type 2 in obese Is this a current diagnosis for this admission?: Yes (4) Hypertension Qualifiers: Hypertension type: essential hypertension Qualified Code(s): I10 - Essential (primary) hypertension Is this a current diagnosis for this admission?: Yes (5) Peripheral edema Is this a current diagnosis for this admission?: Yes (6) Renal insufficiency Is this a current diagnosis for this admission?: Yes (7) Anemia Qualifiers: Anemia type: iron deficiency Iron deficiency anemia type: unspecified iron deficiency Qualified Code(s): D50.9 - Iron deficiency anemia, unspecified Is this a current diagnosis for this admission?: Yes - Notes Notes: CHF: [place] to be related to diastolic dysfunction. Continue current medical regimen with which she has improved. 2D echo results reviewed and discussed with the patient. Further addition will be made later. CHF: Patient noted to be in CHF based on symptoms, elevated BNP, pulmonary vascular congestion and cardiomegaly. 2D echo results were reviewed with the patient. It showed LV diastolic dysfunction. No significant valvular abnormalities were noted. Continue with diuretic therapy, maintain oxygenation , DVT prophylaxis etc. patient advised on salt and fluid restriction. Cardiomegaly: Noted on chest x-ray. [place] to be related to LVH.. Diabetes: Recommend good control of blood sugar. However should avoid any hypoglycemia and hyperglycemia. Patient being expertly managed by primary care MLamonte/hospitalist Hypertension: Reasonably well controlled. Blood pressure goal in this patient is 135/85 or less. This was discussed with the patient. Currently blood pressure under reasonable control. Better medication for this patient are ROSALIND inhibitor/ARB/beta cookie etc. discussed side effects of uncontrolled hypertension and also severe hypotension. Renal insufficiency: Patient seems to have chronic kidney disease stage 3. Avoid any nephrotoxic agents, IV contrast agent dye etc. consider nephrology evaluation. Presence of chronic kidney disease is a prognostic factor. Anemia: Patient describes heavy menstruation bleed. Follow expectantly. May recommend evaluation for iron insufficiency. - Time Time with patient: Greater than 35 minutes - CODE STATUS was discussed, patient remains full code. Surrogate decision-maker unchanged. Multiple medical problems were addressed. More than 50% of the time spent coordinating care, discussing management plans with involved caregivers. Management plans discussed with involved personnels. Medical decision making was of moderate to high complexity, patient's has multiple comorbidities. Medications reviewed and adjusted accordingly: Yes
[2017-10-19] MEDS: ATORVASTATIN CALCIUM 40 MG TABLET PO SCH (21:53)
[2017-10-20] MEDS: HEPARIN SOD (PORCINE) 5,000 UNIT/ML 1 ML SYRINGE SUBCUT SCH ×3 (06:17→22:09)
[2017-10-20] MEDS: INSULIN LISPRO 100 UNIT/ML 3 ML VIAL SUBCUT PRN ×4 (08:00→23:13)
[2017-10-20] MEDS: INSULIN NPH (ISOPHANE), HUMAN 100 UNIT/ML 3 ML SUBCUT SCH (08:01)
[2017-10-20] MEDS: FUROSEMIDE INJ/PF 40 MG/4 ML SDV IV SCH ×2 (09:18→22:07)
[2017-10-20] MEDS: METOPROLOL TARTRATE 50 MG TABLET PO SCH ×2 (09:19→22:08)
[2017-10-20] MEDS: ASPIRIN 81 MG TABLET, ENT COATED PO SCH (09:19)
[2017-10-20] MEDS: LOSARTAN POTASSIUM 50 MG TABLET PO SCH (09:19)
[2017-10-20] MEDS: FAMOTIDINE 20 MG TABLET PO SCH ×2 (09:19→22:08)
[2017-10-20] MEDS: IRON POLYSACCHARIDES COMPLEX 150 MG CAPSULE PO SCH (11:27)
[2017-10-20] MEDS: HYDRALAZINE HCL INJ/PF 20 MG/1 ML SDV IV PRN (12:41)
--- NOTE | 2017-10-20 14:35 | PDOC PROGRESS REPORT ---
Subjective Progress Note for:: 10/20/17 Subjective:: Patient was admitted with difficulty breathing and shortness of breath as well as generalized swelling. She has been treated for decompensated CHF. Patient states that her swelling has improved and she is actually able to see her legs today. Reason For Visit: HEART FAILURE,HYPERTENSIVE URGENCY Physical Exam Vital Signs: Temp Pulse Resp BP Pulse Ox 98.1 F 72 16 180/73 H 100 10/20/17 12:31 10/20/17 14:00 10/20/17 12:31 10/20/17 12:31 10/20/17 12:31 Intake & Output 10/19/17 10/20/17 10/21/17 06:59 06:59 06:59 Intake Total 371 1606 414 Output Total 2500 2500 1700 Balance -2129 -894 -1286 Weight 113 kg 113 kg General appearance: PRESENT: no acute distress, morbidly obese Head exam: PRESENT: atraumatic, normocephalic Eye exam: PRESENT: conjunctiva pink, EOMI, PERRLA. ABSENT: scleral icterus Ear exam: PRESENT: normal external ear exam Mouth exam: PRESENT: moist, tongue midline Neck exam: ABSENT: carotid bruit, JVD, lymphadenopathy, thyromegaly Respiratory exam: PRESENT: decreased breath sounds, unlabored. ABSENT: rales, rhonchi, wheezes Cardiovascular exam: PRESENT: RRR. ABSENT: diastolic murmur, rubs, systolic murmur Pulses: PRESENT: normal dorsalis pedis pul Vascular exam: PRESENT: normal capillary refill GI/Abdominal exam: PRESENT: normal bowel sounds, soft. ABSENT: distended, guarding, mass, organolmegaly, rebound, tenderness Rectal exam: PRESENT: deferred Extremities exam: PRESENT: full ROM, +2 edema. ABSENT: calf tenderness, clubbing, pedal edema Neurological exam: PRESENT: alert, awake, oriented to person, oriented to place , oriented to time, oriented to situation, CN II-XII grossly intact. ABSENT: motor sensory deficit Psychiatric exam: PRESENT: appropriate affect, normal mood. ABSENT: homicidal ideation, suicidal ideation Skin exam: PRESENT: dry, intact, warm. ABSENT: cyanosis, rash Results Laboratory Results: 10/19/17 06:43 10/19/17 06:43 10/19/17 19:41 Stool Occult Blood NEGATIVE 0710/19/17 10/19/17 19:15 00:58 06:43 Troponin I < 0.012 0.012 0.015 NT-Pro-B Natriuret Pep [id number] H 10/19/17 12:32 Troponin I 0.016 NT-Pro-B Natriuret Pep Impressions: Chest X-Ray 10/18/17 14:46 IMPRESSION: MILD CARDIOMEGALY WITH BORDERLINE VASCULAR PROMINENCE. SMALL PLEURAL EFFUSIONS. Assessment & Plan - Time Time Spent with patient: 15-24 minutes Medications reviewed and adjusted accordingly: Yes Anticipated discharge: Home Within: within 48 hours - Inpatient Certification Based on my medical assessment, after consideration of the patient's comorbidities, presenting symptoms, or acuity I expect that the services needed warrant INPATIENT care.: Yes Medical Necessity: Risk of Complication if Not Cared For in Hospital - Plan Summary Plan Summary: Chronic CHF with acute decompensation currently on diuresis. We will continue to monitor input and output. CHF is thought to be secondary to diastolic dysfunction as ejection fraction is grossly intact within normal limits 2. Type 2 diabetes mellitus currently on sliding scale insulin 3. Hypertension we will adjust antihypertensives for optimal blood pressure control 4. Chronic kidney disease stage III 5. Chronic anemia
[2017-10-20] MEDS: MAGNESIUM OXIDE 400 MG TABLET PO SCH (17:29)
--- NOTE | 2017-10-20 18:29 | PDOC PROGRESS REPORT ---
Subjective Progress Note for:: 10/20/17 Subjective:: Patient seems to be doing better with gradual improvement. Pt is denying any chest arm or neck discomfort. Patient denying any PND, orthopnea. Patient denied any sustained palpitations, dizziness, syncope, near syncope. Patient denying any fever chills. Patient denying any other significant discomfort. Patient has significant decrease in pedal edema. Clinically she is improved. 2D echo results were again reviewed with the patient. Patient is maintaining sinus rhythm. Review of systems: Rest review of systems negative. Medications: Medications have been reviewed. Reason For Visit: HEART FAILURE,HYPERTENSIVE URGENCY Physical Exam Vital Signs: Temp Pulse Resp BP Pulse Ox 98.3 F 70 16 157/70 H 98 10/20/17 15:59 10/20/17 15:59 10/20/17 15:59 10/20/17 15:59 10/20/17 15:59 Intake & Output 10/19/17 10/20/17 10/21/17 06:59 06:59 06:59 Intake Total 371 1606 414 Output Total 2500 2500 1700 Balance -2129 -894 -1286 Weight 113 kg 113 kg Exam: GENERAL: well-nourished and in no acute distress. Alert and oriented x3 HEAD: Atraumatic, normocephalic. EYES: Pupils equal round and reactive to light, extraocular movements intact, sclera anicteric, conjunctiva are normal. ENT: TMs normal, nares patent, oropharynx clear without exudates. Moist mucous membranes. No oral ulcerations or bleeding gums noted NECK: supple without lymphadenopathy. Trachea is central. No cervical or axillary lymphadenopathy noted. Carotids are 2+, JVD WNL LUNGS: Respiration seems nonlabored, no significant accessory muscle action noted. Breath sounds clear to auscultation bilaterally and equal noted. No wheezes rales or rhonchi noted. No significant dullness noted on percussion. CHEST: Palpation of the chest wall shows no significant chest wall tenderness. 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 ABDOMEN: Soft, no significant tenderness appreciated, normoactive bowel sounds. No guarding, no rebound. No rigidity noted . No masses appreciated. EXTREMITIES: Pedal pulses are 1-2+, no calf tenderness noted. No clubbing or cyanosis. 1+ pedal edema noted NEUROLOGICAL: Focused neurological exam showed no significant neurologic deficit. Normal speech, no focal weakness appreciated. PSYCH: Normal mood, normal affect. Judgment and insight within normal limits. SKIN: No significant ecchymosis, skin is noted to be warm. MUSCULOSKELETAL EXAM: No significant acute joint swelling noted. Results Laboratory Results: 10/19/17 06:43 10/19/17 06:43 10/19/17 19:41 Stool Occult Blood NEGATIVE 10/18/17 10/19/17 10/19/17 19:15 00:58 06:43 Troponin I < 0.012 0.012 0.015 NT-Pro-B Natriuret Pep [id number] H 10/19/17 12:32 Troponin I 0.016 NT-Pro-B Natriuret Pep EKG Comments: Showed sinus rhythm without any sustained tachycardia or bradycardia Impressions: Chest X-Ray 10/18/17 14:46 IMPRESSION: MILD CARDIOMEGALY WITH BORDERLINE VASCULAR PROMINENCE. SMALL PLEURAL EFFUSIONS. Assessment & Plan - Diagnosis (1) CHF (congestive heart failure) Qualifiers: Heart failure type: unspecified Heart failure chronicity: unspecified Qualified Code(s): I50.9 - Heart failure, unspecified Is this a current diagnosis for this admission?: Yes (2) Cardiomegaly Is this a current diagnosis for this admission?: Yes (3) Diabetes mellitus type 2 in obese Is this a current diagnosis for this admission?: Yes (4) Hypertension Qualifiers: Hypertension type: essential hypertension Qualified Code(s): I10 - Essential (primary) hypertension Is this a current diagnosis for this admission?: Yes (5) Peripheral edema Is this a current diagnosis for this admission?: Yes (6) Renal insufficiency Is this a current diagnosis for this admission?: Yes (7) Anemia Qualifiers: Anemia type: iron deficiency Iron deficiency anemia type: unspecified iron deficiency Qualified Code(s): D50.9 - Iron deficiency anemia, unspecified Is this a current diagnosis for this admission?: Yes (8) Obesity Qualifiers: Obesity type: unspecified obesity type Obesity classification: unspecified obesity classification Is this a current diagnosis for this admission?: Yes - Notes Notes: CHF: Patient noted to be in CHF based on symptoms, elevated BNP, pulmonary vascular congestion and cardiomegaly. 2D echocardiogram suggest CHF from diastolic dysfunction aggravated by possible volume overload. Recommend baseline diuretic therapy. Can now be switched to p.o. diuretics. Cardiomegaly: Noted on chest x-ray. [place] to be related to LVH. Diabetes: Recommend good control of blood sugar. However should avoid any hypoglycemia and hyperglycemia. Patient being expertly managed by primary care M.D/hospitalist Hypertension: Reasonably well controlled. Blood pressure goal in this patient is 135/85 or less. This was discussed with the patient. Currently blood pressure under reasonable control. Better medication for this patient are ROSALIND inhibitor/ARB/beta cookie etc. discussed side effects of uncontrolled hypertension and also severe hypotension. Renal insufficiency: Patient seems to have chronic kidney disease stage 3. Avoid any nephrotoxic agents, IV contrast agent dye etc. consider nephrology evaluation. Presence of chronic kidney disease is a prognostic factor. Anemia: Patient describes heavy menstruation bleed. Follow expectantly. May recommend evaluation for iron insufficiency. Patient has significant risk factors for having sleep disordered breathing. It may be worthwhile to have this evaluated as an outpatient. Patient will also benefit from weight loss. This was explained to the patient. - Time Time Spent with patient: CODE STATUS was discussed, patient remains full code. Surrogate decision-maker unchanged. Multiple medical problems were addressed. More than 50% of the time spent coordinating care, discussing management plans with involved caregivers. Management plans discussed with involved personnels. Medical decision making was of moderate to high complexity, patient's has multiple comorbidities. Time with patient: 15-25 minutes
[2017-10-20] MEDS: ATORVASTATIN CALCIUM 40 MG TABLET PO SCH (22:08)
[2017-10-21] MEDS: HYDRALAZINE HCL INJ/PF 20 MG/1 ML SDV IV PRN (02:31)
[2017-10-21] MEDS: HEPARIN SOD (PORCINE) 5,000 UNIT/ML 1 ML SYRINGE SUBCUT SCH ×2 (05:53→14:09)
[2017-10-21] MEDS: INSULIN NPH (ISOPHANE), HUMAN 100 UNIT/ML 3 ML SUBCUT SCH (07:48)
[2017-10-21] MEDS: INSULIN LISPRO 100 UNIT/ML 3 ML VIAL SUBCUT PRN ×2 (07:49→12:10)
[2017-10-21] MEDS: ASPIRIN 81 MG TABLET, ENT COATED PO SCH (10:02)
[2017-10-21] MEDS: MAGNESIUM OXIDE 400 MG TABLET PO SCH (10:02)
[2017-10-21] MEDS: FAMOTIDINE 20 MG TABLET PO SCH (10:02)
[2017-10-21] MEDS: METOPROLOL TARTRATE 50 MG TABLET PO SCH (10:02)
[2017-10-21] MEDS: LOSARTAN POTASSIUM 50 MG TABLET PO SCH (10:02)
[2017-10-21] MEDS: FUROSEMIDE INJ/PF 40 MG/4 ML SDV IV SCH (10:03)
[2017-10-21] MEDS: IRON POLYSACCHARIDES COMPLEX 150 MG CAPSULE PO SCH (12:49)
[2017-10-21 13:47] VITALS: BP 151/81
--- NOTE | 2017-10-21 19:29 | PDOC PROGRESS REPORT ---
Subjective Progress Note for:: 10/21/17 Subjective:: Patient seems to be doing better. Patient still has some pedal edema. Pt is denying any chest arm or neck discomfort. Patient denying any PND, orthopnea. Patient denied any sustained palpitations, dizziness, syncope, near syncope. Patient denying any fever chills. Patient denying any other significant discomfort. Patient has significant decrease in pedal edema. Clinically she is improved. 2D echo results were again reviewed with the patient. Patient is maintaining sinus rhythm. Review of systems: Rest review of systems negative. Medications: Medications have been reviewed. Reason For Visit: HEART FAILURE,HYPERTENSIVE URGENCY Physical Exam Vital Signs: Temp Pulse Resp BP Pulse Ox 97.3 F 79 16 160/72 H 99 10/21/17 13:10 10/21/17 13:10 10/21/17 13:10 10/21/17 13:10 10/21/17 13:10 Intake & Output 10/20/17 10/21/17 10/22/17 06:59 06:59 06:59 Intake Total 1606 1452 Output Total 2500 3150 Balance -894 -1698 Weight 113 kg 113 kg Exam: GENERAL: well-nourished and in no acute distress. Alert and oriented x3 HEAD: Atraumatic, normocephalic. EYES: Pupils equal round and reactive to light, extraocular movements intact, sclera anicteric, conjunctiva are normal. ENT: TMs normal, nares patent, oropharynx clear without exudates. Moist mucous membranes. No oral ulcerations or bleeding gums noted NECK: supple without lymphadenopathy. Trachea is central. No cervical or axillary lymphadenopathy noted. Carotids are 2+, JVD 8-10 cm LUNGS: Respiration seems nonlabored, no significant accessory muscle action noted. Breath sounds clear to auscultation bilaterally and equal noted. No wheezes rales or rhonchi noted. No significant dullness noted on percussion. CHEST: Palpation of the chest wall shows no significant chest wall tenderness. 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 ABDOMEN: Soft, no significant tenderness appreciated, normoactive bowel sounds. No guarding, no rebound. No rigidity noted . No masses appreciated. EXTREMITIES: Pedal pulses are 1-2+, no calf tenderness noted. No clubbing or cyanosis. 1-2+ pedal edema noted NEUROLOGICAL: Focused neurological exam showed no significant neurologic deficit. Normal speech, no focal weakness appreciated. PSYCH: Normal mood, normal affect. Judgment and insight within normal limits. SKIN: No significant ecchymosis, skin is noted to be warm. MUSCULOSKELETAL EXAM: No significant acute joint swelling noted. Results Laboratory Results: 10/19/17 06:43 10/19/17 06:43 10/18/17 10/19/17 10/19/17 19:15 00:58 06:43 Troponin I < 0.012 0.012 0.015 NT-Pro-B Natriuret Pep [id number] H 10/19/17 12:32 Troponin I 0.016 NT-Pro-B Natriuret Pep EKG Comments: Telemetry strip shows sinus rhythm without any sustained tachycardia or bradycardia. Impressions: Chest X-Ray 10/18/17 14:46 IMPRESSION: MILD CARDIOMEGALY WITH BORDERLINE VASCULAR PROMINENCE. SMALL PLEURAL EFFUSIONS. Assessment & Plan - Diagnosis (1) CHF (congestive heart failure) Qualifiers: Heart failure type: unspecified Heart failure chronicity: unspecified Qualified Code(s): I50.9 - Heart failure, unspecified Is this a current diagnosis for this admission?: Yes (2) Cardiomegaly Is this a current diagnosis for this admission?: Yes (3) Diabetes mellitus type 2 in obese Is this a current diagnosis for this admission?: Yes (4) Hypertension Qualifiers: Hypertension type: essential hypertension Qualified Code(s): I10 - Essential (primary) hypertension Is this a current diagnosis for this admission?: Yes (5) Peripheral edema Is this a current diagnosis for this admission?: Yes (6) Renal insufficiency Is this a current diagnosis for this admission?: Yes (7) Anemia Qualifiers: Anemia type: iron deficiency Iron deficiency anemia type: unspecified iron deficiency Qualified Code(s): D50.9 - Iron deficiency anemia, unspecified Is this a current diagnosis for this admission?: Yes - Notes Notes: CHF: Patient with confirmed CHF diagnosis, elevated BNP, pulmonary vascular congestion and cardiomegaly. 2D echocardiogram suggest CHF from diastolic dysfunction aggravated by possible volume overload. Recommend patient to be discharged on p.o. diuretics especially loop diuretics. Cardiomegaly: Noted on chest x-ray. [place] to be related to LVH. Diabetes: Recommend good control of blood sugar. However should avoid any hypoglycemia and hyperglycemia. Patient being expertly managed by primary care M.D/hospitalist Hypertension: Reasonably well controlled. Blood pressure goal in this patient is 135/85 or less. This was discussed with the patient. Currently blood pressure under reasonable control. Better medication for this patient are ROSALIND inhibitor/ARB/beta cookie etc. discussed side effects of uncontrolled hypertension and also severe hypotension. Renal insufficiency: Patient seems to have chronic kidney disease stage 3. Avoid any nephrotoxic agents, IV contrast agent dye etc. consider nephrology evaluation. Presence of chronic kidney disease is a prognostic factor. Anemia: Patient describes heavy menstruation bleed. Follow expectantly. May recommend evaluation for iron deficiency on replacement as needed. This can be performed as an outpatient.. Patient has significant risk factors for having sleep disordered breathing. It may be worthwhile to have this evaluated as an outpatient. Patient will also benefit from weight loss. This was explained to the patient. Patient can follow-up with me. I informed hospitalist that patient is ready for discharge. Will sign off. Please reconsult if needed. - Time Time with patient: 15-25 minutes - CODE STATUS was discussed, patient remains full code. Surrogate decision-maker unchanged. Multiple medical problems were addressed. More than 50% of the time spent coordinating care, discussing management plans with involved caregivers. Management plans discussed with involved personnels. Medical decision making was of moderate to high complexity , patient's has multiple comorbidities. Medications reviewed and adjusted accordingly: Yes
--- NOTE | 2017-10-23 16:50 | PDOC DISCHARGE SUMMARY ---
General - Admit/Disc Date/PCP Admission Date/Primary Care Provider: 10/18/17 17:33 ALEIDA GUIDRY MD Discharge Date: 10/21/17 - Discharge Diagnosis (1) Anemia Is this a current diagnosis for this admission?: Yes (2) CHF (congestive heart failure) Is this a current diagnosis for this admission?: Yes Summary: Chronic diastolic with acute decompensation (3) Cardiomegaly Is this a current diagnosis for this admission?: Yes (4) Diabetes mellitus type 2 in obese Is this a current diagnosis for this admission?: Yes (5) Hypertension Is this a current diagnosis for this admission?: Yes (6) Hypertensive urgency Is this a current diagnosis for this admission?: Yes (7) Obesity Is this a current diagnosis for this admission?: Yes (8) Renal insufficiency Is this a current diagnosis for this admission?: Yes - Additional Information Resuscitation Status: Full Code Discharge Diet: Cardiac, Diabetic Discharge Activity: Activity As Tolerated, Weigh Daily Prescriptions: Atorvastatin Calcium [Lipitor 40 mg Tablet] 40 mg PO QHS #30 tablet Amlodipine Besylate [Norvasc 5 mg Tablet] 5 mg PO DAILY #30 tablet Iron Polysaccharide Complex [Ezfe 200] 200 mg PO DAILY #30 capsule Losartan Potassium [Cozaar 50 mg Tablet] 50 mg PO DAILY #60 tablet Metoprolol Tartrate [Lopressor 50 mg Tablet] 50 mg PO Q12 #60 tablet NPH, Human Insulin Isophane [Humulin N (NPH) Insulin 100 unit/mL] 25 unit SUBCUT ACBRKFST #300 unit Torsemide [Demadex 20 mg Tablet] 20 mg PO DAILY #30 tablet Home Medications: Amlodipine Besylate [Norvasc 5 mg Tablet] 5 mg PO DAILY #30 tablet 10/21/17 Aspirin [Ecotrin 81 mg EC Tablet] 81 mg PO DAILY tabec 10/21/17 Atorvastatin Calcium [Lipitor 40 mg Tablet] 40 mg PO QHS #30 tablet 10/21/17 Iron Polysaccharide Complex [Ezfe 200] 200 mg PO DAILY #30 capsule 10/21/17 Losartan Potassium [Cozaar 50 mg Tablet] 50 mg PO DAILY #60 tablet 10/21/17 Metoprolol Tartrate [Lopressor 50 mg Tablet] 50 mg PO Q12 #60 tablet 10/21/17 NPH, Human Insulin Isophane [Humulin N (NPH) Insulin 100 unit/mL] 25 unit SUBCUT ACBRKFST #300 unit 10/21/17 Torsemide [Demadex 20 mg Tablet] 20 mg PO DAILY #30 tablet 10/21/17 History of Present Illness History of Present Illness: DAMIR LEE is a 42 year old female Hospital Course Hospital Course: This patient was admitted with pedal edema just progressive as well as difficulty breathing. She was thought to have acute CHF decompensation. Her blood pressure was also elevated on presentation. Echocardiogram suggest CHF from diastolic dysfunction. Patient also had cardiomegaly and elevated BNP and pulmonary vascular congestion. Her blood pressure still suboptimally controlled need further medication adjustment as outpatient for optimal blood pressure control. He also has some chronic kidney disease likely related to underlying diabetes and hypertensive nephrosclerosis Patient is been discharged home in stable condition. She had been advised that she can go back to work in 24 hours after discharge Physical Exam Vital Signs: Temp Pulse Resp BP Pulse Ox 97.3 F 79 16 160/72 H 99 10/21/17 13:10 10/21/17 13:10 10/21/17 13:10 10/21/17 13:10 10/21/17 13:10 General appearance: PRESENT: no acute distress, well-developed, well-nourished Head exam: PRESENT: atraumatic, normocephalic Eye exam: PRESENT: conjunctiva pink, EOMI, PERRLA. ABSENT: scleral icterus Ear exam: PRESENT: normal external ear exam Mouth exam: PRESENT: moist, tongue midline Neck exam: ABSENT: carotid bruit, JVD, lymphadenopathy, thyromegaly Respiratory exam: PRESENT: clear to auscultation rj. ABSENT: rales, rhonchi, wheezes Cardiovascular exam: PRESENT: RRR. ABSENT: diastolic murmur, rubs, systolic murmur Pulses: PRESENT: normal dorsalis pedis pul Vascular exam: PRESENT: normal capillary refill GI/Abdominal exam: PRESENT: normal bowel sounds, soft. ABSENT: distended, guarding, mass, organolmegaly, rebound, tenderness Rectal exam: PRESENT: deferred Extremities exam: PRESENT: full ROM, pedal edema, +1 edema. ABSENT: calf tenderness, clubbing Neurological exam: PRESENT: alert, awake, oriented to person, oriented to place , oriented to time, oriented to situation, CN II-XII grossly intact. ABSENT: motor sensory deficit Psychiatric exam: PRESENT: appropriate affect, normal mood. ABSENT: homicidal ideation, suicidal ideation Skin exam: PRESENT: dry, intact, warm. ABSENT: cyanosis, rash Results Laboratory Results: 10/19/17 06:43 10/19/17 06:43 10/18/17 10/19/17 10/19/17 19:15 00:58 06:43 Troponin I < 0.012 0.012 0.015 NT-Pro-B Natriuret Pep 94700 H 10/19/17 12:32 Troponin I 0.016 NT-Pro-B Natriuret Pep Impressions: Chest X-Ray 10/18/17 14:46 IMPRESSION: MILD CARDIOMEGALY WITH BORDERLINE VASCULAR PROMINENCE. SMALL PLEURAL EFFUSIONS. Qualifiers - * PATIENT BEING DISCHARGED WITH ANY OF THE FOLLOWING DIAGNOSIS: No, Heart Failure HF Pt being discharged on ACEI for LVEF less than 40%?: No Reason(s) for not prescribing ACEI:: Not indicated HF Pt being discharged on ARBS for LVEF less than 40%?: No Reason(s) for not prescribing ARBS:: Not indicated HF Pt with Afib discharged with Warfarin?: No Reason(s) for not prescribing Warfarin:: Not indicated HF Pt discharged on evidence-based Beta Agus:: Yes Plan Time Spent: Greater than 30 Minutes
== END 2017-10-21 14:41 | disposition home or self-care (01) | DRG 304 ==
LOC: ER 13:41 → EH 17:33 → 3W 22:35
PROVIDERS: ADMIT Internal Medicine; ATTEND Internal Medicine
DX: I16.0 Hypertensive urgency (principal); I50.33 Acute on chronic diastolic (congestive) heart failure; Z68.42 Body mass index [BMI] 45.0-49.9, adult; I13.0 Hypertensive heart and chronic kidney disease with heart failure and stage 1 through stage 4 chronic kidney disease, or unspecified chronic kidney disease; N18.3 Chronic kidney disease, stage 3 (moderate); D63.1 Anemia in chronic kidney disease; E11.22 Type 2 diabetes mellitus with diabetic chronic kidney disease; E78.00 Pure hypercholesterolemia, unspecified; E66.01 Morbid (severe) obesity due to excess calories; E03.9 Hypothyroidism, unspecified; Z79.899 Other long term (current) drug therapy; Z79.4 Long term (current) use of insulin; Z82.49 Family history of ischemic heart disease and other diseases of the circulatory system; Z83.3 Family history of diabetes mellitus; Z80.9 Family history of malignant neoplasm, unspecified
CPT/HCPCS: 36415; 71046; 80048; 80053; 80061; 81001; 82272; 82550; 82553; 82607; 82728; 82746; 82962; 83036; 83540; 83550; 83735; 83880; 84439; 84443; 84481; 84484; 85025; 85045; 93005; 93010; 93306; 96374; 99285; J0360; J1644; J1815; J1940; J3475; J3490

== ENCOUNTER 2017-11-12 06:01 | Emergency (ER) | payer OTHER, BC ==
[2017-11-12] MEDS ORDERED: ONDANSETRON HCL INJ/PF 4 MG/2 ML SDV IV ONE (06:45)
[2017-11-12] MEDS ORDERED: FENTANYL CITRATE INJ/PF 100 MCG/2 ML AMPUL IV ONE (06:45)
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
[2017-11-12 07:56] LABS: ALANINE AMINOTRANSFERASE 38 U/L (9-52); ALBUMIN 2.3 g/dL (3.5-5.0); ALKALINE PHOSPHATASE 75 U/L (38-126); ANION GAP 9 (5-19); ASPARTATE AMINO TRANSFERASE 41 U/L (14-36); BILIRUBIN,DIRECT 0.4 mg/dL (0.0-0.4); BILIRUBIN,TOTAL 0.4 mg/dL (0.2-1.3); BLOOD UREA NITROGEN 46 mg/dL (7-20); CALCIUM 7.7 mg/dL (8.4-10.2); CARBON DIOXIDE 22 mmol/L (22-30); CHLORIDE 110 mmol/L (98-107); POTASSIUM 4.2 mmol/L (3.6-5.0); SODIUM 140.9 mmol/L (137-145)
[2017-11-12 08:00] LABS: ABSOLUTE BASOPHILS # (AUTO) 0.1 10^3/uL (0.0-0.2); ABSOLUTE LYMPHOCYTES (AUTO) 0.9 10^3/uL (0.5-4.7); ABSOLUTE MONOCYTES (AUTO) 0.7 10^3/uL (0.1-1.4); ABSOLUTE NEUT (AUTO) 11.7 10^3/uL (1.7-8.2); BASOPHILS % (AUTO) 0.4 % (0-2); EOSINOPHILS % (AUTO) 0.3 % (0-6); HEMATOCRIT 23.3 % (36.0-47.0); LYMPHOCYTES % (AUTO) 6.8 % (13-45); MEAN CORPUSCULAR HEMOGLOBIN 21.7 pg (27.0-33.4); MEAN CORPUSCULAR HGB CONC 30.5 g/dL (32.0-36.0); MEAN CORPUSCULAR VOLUME 71 fl (80-97); MONOCYTES % (AUTO) 5.4 % (3-13); PLATELET COUNT 361 10^3/uL (150-450); RED BLOOD COUNT 3.28 10^6/uL (3.72-5.28); RED CELL DISTRIBUTION WIDTH 15.9 % (11.5-14.0); SEGMENTED NEUTROPHILS % (AUTO) 87.1 % (42-78); TOTAL CELLS COUNTED % (AUTO) 100 %; WHITE BLOOD COUNT 13.5 10^3/uL (4.0-10.5)
[2017-11-12 08:03] LABS: HEMOGLOBIN 7.1 g/dL (12.0-15.5)
[2017-11-12 08:12] LABS: GLUCOSE 434 mg/dL (75-110)
[2017-11-12] MEDS ORDERED: INSULIN REG, HUMAN 100 UNIT/ML 3 ML VIAL (PYX) SUBCUT ONE (08:22)
[2017-11-12] MEDS ORDERED: NORMAL SALINE 250 ML IV PRN (08:54)
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
[2017-11-12] MEDS ORDERED: LORAZEPAM INJ 2 MG/1 ML VIAL IV ONE (09:21)
[2017-11-12] MEDS ORDERED: ONDANSETRON HCL INJ/PF 4 MG/2 ML SDV ONE (09:29)
[2017-11-12 10:04] VITALS: BP 159/68
--- NOTE | 2017-11-12 12:19 | EKG REPORT ---
SEVERITY:- ABNORMAL ECG - SINUS RHYTHM BORDERLINE T WAVE ABNORMALITIES POOR R WAVE PROGRESSION ANTERIOR PRECORDIAL LEADS. : Confirmed by: Kaleb Rosales MD 12-Nov-2017 12:18:49
== END 2017-11-12 09:36 | disposition short-term general hospital (02) ==
LOC: ER 06:01
DX: S36.899A Unspecified injury of other intra-abdominal organs, initial encounter (principal); V48.5XXA Car driver injured in noncollision transport accident in traffic accident, initial encounter; F17.200 Nicotine dependence, unspecified, uncomplicated; E78.00 Pure hypercholesterolemia, unspecified; I10 Essential (primary) hypertension; E11.9 Type 2 diabetes mellitus without complications; R07.9 Chest pain, unspecified
CPT/HCPCS: 93005; 96376; 99291; 96374; 96375; 86900; 86901; 36415; 36430; 86850; 82962; 84703; 85025; 80053; 86920; 71045; 71250; 74176; 93010; P9016; J3010; J2060; J1815; J2405

== ENCOUNTER 2018-02-09 17:25 | Emergency (ER) | payer BC ==
--- NOTE | 2018-02-09 18:22 | ER Document Report ---
ED Medical Screen (RME) - General Chief Complaint: Blood Pressure Problem Stated Complaint: BLOOD PRESSURE ISSUES Time Seen by Provider: 02/09/18 18:12 Notes: Patient is a 42-year-old female with CHF, hypertension, hyperlipidemia, hypertension that presents to the emergency department for chief complaint of breath, and worsening lower extremity edema, seen a primary care physician office today and advised to come to the emergency department. ROS: Other than noted above, the 12 point review of systems was reviewed with the patient and were negative, all pertinent findings are included in the HPI. PHYSICAL EXAMINATION: Vital signs reviewed. GENERAL: Well-appearing, well-nourished and in no acute distress. HEAD: Atraumatic, normocephalic. EYES: Pupils equal round extraocular movements intact, conjunctiva are normal. ENT: Nares patent NECK: Normal range of motion CV: Heart regular rate and rhythm LUNGS: No respiratory distress Musculoskeletal: Severe bilateral lower extremity edema NEUROLOGICAL: Normal speech PSYCH: Normal mood, normal affect. MDM: Patient seen and examined for rapid initial assessment. Vital signs reviewed. A comprehensive ED assessment and evaluation of the patient, analysis of test results and completion of the medical decision making process will be conducted by additional ED providers. *Note is created using voice recognition software and may contain spelling, syntax or grammatical errors. TRAVEL OUTSIDE OF THE [place] IN LAST 30 DAYS: No - Related Data Allergies/Adverse Reactions: No Known Allergies Allergy (Verified 02/09/18 18:07) Past Medical History - Social History Chew tobacco use (# tins/day): No Drug Abuse: None - Past Medical History Cardiac Medical History: Reports: Hx Hypercholesterolemia, Hx Hypertension Endocrine Medical History: Reports: Hx Diabetes Mellitus Type 2 Renal/ Medical History: Denies: Hx Peritoneal Dialysis Past Surgical History: Reports: Hx Tonsillectomy - Immunizations History of Influenza Vaccine for 12/2016 - 05/2017 Season: No Physical Exam - Vital signs Vitals: Temp Pulse Resp BP Pulse Ox 97.9 F 88 16 184/98 H 96 02/09/18 17:45 02/09/18 17:45 02/09/18 17:45 02/09/18 17:45 02/09/18 17:45 Course - Vital Signs Vital signs: Temp Pulse Resp BP Pulse Ox 97.9 F 88 16 184/98 H 96 02/09/18 17:45 02/09/18 17:45 02/09/18 17:45 02/09/18 17:45 02/09/18 17:45
--- NOTE | 2018-02-09 19:14 | RADIOLOGY REPORT (SQ) ---
EXAM DESCRIPTION: CHEST SINGLE VIEW COMPLETED DATE/TIME: 02/09/2018 6:49 pm REASON FOR STUDY: shortness of breath COMPARISON: 10/18/2018 EXAM PARAMETERS: NUMBER OF VIEWS: One view. TECHNIQUE: Single frontal radiographic view of the chest acquired. RADIATION DOSE: NA LIMITATIONS: None. FINDINGS: LUNGS AND PLEURA: Small pleural effusions. MEDIASTINUM AND HILAR STRUCTURES: No masses. Contour normal. HEART AND VASCULAR STRUCTURES: Cardiomegaly. No morro pulmonary edema. BONES: No acute findings. HARDWARE: None in the chest. OTHER: No other significant finding. IMPRESSION: Cardiomegaly without morro pulmonary edema. Small pleural effusions. TECHNICAL DOCUMENTATION: JOB ID: [id number] [employer]- All Rights Reserved Reading location - IP/workstation name: [email or web address]
[2018-02-09 19:27] LABS: ABSOLUTE EOSINOPHILS # (AUTO) 0.1 10^3/uL (0.0-0.6); ABSOLUTE LYMPHOCYTES (AUTO) 1.2 10^3/uL (0.5-4.7); ABSOLUTE MONOCYTES (AUTO) 0.4 10^3/uL (0.1-1.4); ABSOLUTE NEUT (AUTO) 5.1 10^3/uL (1.7-8.2); BASOPHILS % (AUTO) 0.7 % (0-2); EOSINOPHILS % (AUTO) 1.1 % (0-6); HEMATOCRIT 32.9 % (36.0-47.0); HEMOGLOBIN 10.3 g/dL (12.0-15.5); LYMPHOCYTES % (AUTO) 17.1 % (13-45); MEAN CORPUSCULAR HEMOGLOBIN 23.2 pg (27.0-33.4); MEAN CORPUSCULAR HGB CONC 31.4 g/dL (32.0-36.0); MEAN CORPUSCULAR VOLUME 74 fl (80-97); MONOCYTES % (AUTO) 6.5 % (3-13); PLATELET COUNT 320 10^3/uL (150-450); RED BLOOD COUNT 4.46 10^6/uL (3.72-5.28); RED CELL DISTRIBUTION WIDTH 18.2 % (11.5-14.0); SEGMENTED NEUTROPHILS % (AUTO) 74.6 % (42-78); TOTAL CELLS COUNTED % (AUTO) 100 %; WHITE BLOOD COUNT 6.8 10^3/uL (4.0-10.5)
[2018-02-09 19:32] LABS: PROTHROMBIN TIME 13.7 SEC (11.4-15.4)
[2018-02-09] MEDS ORDERED: FUROSEMIDE INJ/PF 40 MG/4 ML SDV IV ONE (19:39)
[2018-02-09] MEDS ORDERED: CLONIDINE HCL 0.1 MG TABLET PO ONE ×2 (19:39→20:29)
--- NOTE | 2018-02-09 19:42 | ER Document Report ---
ED General - General Chief Complaint: Blood Pressure Problem Stated Complaint: BLOOD PRESSURE ISSUES Time Seen by Provider: 02/09/18 18:12 Mode of Arrival: Ambulatory Information source: Patient Notes: 42-year-old female presents emergency department with complaints of worsening lower extremity edema, hypertension. Patient contacted her primary care physician and was told to go to the emergency department for evaluation. Patient states that her blood pressure was 204/103 this morning. She states that she has been taking her medication as directed. She is currently on metoprolol, torsemide, losartan. She's noted increased swelling to her legs. She denies chest pain, shortness of breath, abdominal pain, calf pain. TRAVEL OUTSIDE OF THE [place] IN LAST 30 DAYS: No - HPI Onset: Last week Onset/Duration: Gradual Quality of pain: No pain Severity: None Pain Level: Denies Associated symptoms: None Exacerbated by: Denies Relieved by: Denies Similar symptoms previously: Yes Recently seen / treated by doctor: Yes - Related Data Allergies/Adverse Reactions: No Known Allergies Allergy (Verified 02/09/18 18:07) Past Medical History - General Information source: Patient - Social History Smoking Status: Never Smoker Chew tobacco use (# tins/day): No Drug Abuse: None Family History: CAD, DM, Hypertension, Malignancy Patient has suicidal ideation: No Patient has homicidal ideation: No - Past Medical History Cardiac Medical History: Reports: Hx Hypercholesterolemia, Hx Hypertension Endocrine Medical History: Reports: Hx Diabetes Mellitus Type 2 Renal/ Medical History: Denies: Hx Peritoneal Dialysis Past Surgical History: Reports: Hx Tonsillectomy Review of Systems - Review of Systems Constitutional: No symptoms reported EENT: No symptoms reported Cardiovascular: No symptoms reported Respiratory: No symptoms reported Gastrointestinal: No symptoms reported Genitourinary: No symptoms reported Female Genitourinary: No symptoms reported Musculoskeletal: Leg swelling Skin: No symptoms reported Hematologic/Lymphatic: No symptoms reported Neurological/Psychological: No symptoms reported -: Yes All other systems reviewed and negative Physical Exam - Vital signs Vitals: Temp Pulse Resp BP Pulse Ox 97.9 F 88 16 184/98 H 96 02/09/18 17:45 02/09/18 17:45 02/09/18 17:45 02/09/18 17:45 02/09/18 17:45 - Notes Notes: PHYSICAL EXAMINATION: GENERAL: Well-appearing, well-nourished and in no acute distress. HEAD: Atraumatic, normocephalic. EYES: Pupils equal round and reactive to light, extraocular movements intact, conjunctiva are normal. ENT: Nares patent, oropharynx clear without exudates. Moist mucous membranes. NECK: Normal range of motion, supple without lymphadenopathy LUNGS: Breath sounds clear to auscultation bilaterally and equal. No wheezes rales or rhonchi. HEART: Regular rate and rhythm without murmurs ABDOMEN: Soft, nontender, nondistended abdomen. No guarding, no rebound. No masses appreciated. Female : deferred Musculoskeletal: Normal range of motion, 1+ pitting edema. No signs of infection. NEUROLOGICAL: Cranial nerves grossly intact. Normal speech, normal gait. Normal sensory, motor exams PSYCH: Normal mood, normal affect. SKIN: Warm, Dry, normal turgor, no rashes or lesions noted. Course - Re-evaluation Re-evalutation: 02/09/18 19:49 EKG: Ventricular rate 86, IL interval 152, castration 88, QTc 474, sinus rhythm. No ST segment elevation. 02/09/18 21:52 Labs and imaging obtained. Patient's BNP is elevated from previous. Patient's creatinine is also elevated from previous. I discussed the results with the patient. She states that her family doctor has told her that she has renal failure. She states that her primary care physician is referring her to a screwdown operator. They are monitoring her kidney function. Patient denies any chest pain or difficulty breathing. Patient's resting comfortably in the room. She was given 2 doses of clonidine. Her blood pressure is decreasing. I discussed admission versus discharge with the patient. I told her that with her creatinine being elevated that we could keep her in the hospital and work this up. Patient declines admission. She states that she is already following up with her primary care physician for this and will follow-up with her this week. I instructed the patient to continue taking her medication as directed, to follow-up with her primary care physician this week, and to return if she begins having chest pain, shortness of breath, headache, vision changes, or elevated blood pressure. Patient is agreeable with the plan of care. 02/09/18 21:55 02/09/18 21:56 - Vital Signs Vital signs: Temp Pulse Resp BP Pulse Ox 97.9 F 88 25 H 195/82 H 100 02/09/18 17:45 02/09/18 17:45 02/09/18 21:01 02/09/18 21:01 02/09/18 21:01 - Laboratory Result Diagrams: 02/09/18 18:50 02/09/18 18:50 Laboratory results interpreted by me: 02/09/18 02/09/18 02/09/18 18:50 18:50 18:50 Hgb 10.3 L Hct 32.9 L MCV 74 L MCH 23.2 L MCHC 31.4 L RDW 18.2 H BUN 42 H Creatinine 2.25 H Est GFR ( Amer) 29 L Est GFR (Non-Af Amer) 24 L Glucose 223 H Calcium 8.2 L AST 13 L NT-Pro-B Natriuret Pep 04671 H Total Protein 5.5 L Albumin 2.6 L Discharge - Discharge Clinical Impression: Hypertension Qualifiers: Hypertension type: unspecified Qualified Code(s): I10 - Essential (primary) hypertension Renal failure Qualifiers: Renal failure chronicity: unspecified chronicity Qualified Code(s): N19 - Unspecified kidney failure Condition: Good Disposition: HOME, SELF-CARE Instructions: High Blood Pressure ([facility]), Kidney Failure ([facility]) Referrals: KAZ ACUNA MD [ACTIVE STAFF] - Follow up as needed
[2018-02-09 19:44] LABS: ALANINE AMINOTRANSFERASE 14 U/L (9-52); ALBUMIN 2.6 g/dL (3.5-5.0); ALKALINE PHOSPHATASE 111 U/L (38-126); ANION GAP 9 (5-19); ASPARTATE AMINO TRANSFERASE 13 U/L (14-36); BILIRUBIN,DIRECT 0.3 mg/dL (0.0-0.4); BILIRUBIN,TOTAL 0.4 mg/dL (0.2-1.3); BLOOD UREA NITROGEN 42 mg/dL (7-20); CALCIUM 8.2 mg/dL (8.4-10.2); CARBON DIOXIDE 25 mmol/L (22-30); CHLORIDE 105 mmol/L (98-107); GLUCOSE 223 mg/dL (75-110); POTASSIUM 3.7 mmol/L (3.6-5.0); TOTAL PROTEIN 5.5 g/dL (6.3-8.2)
[2018-02-09 19:56] LABS: TROPONIN I 0.028 ng/mL
[2018-02-09 22:06] VITALS: BP 183/79
--- NOTE | 2018-02-10 07:11 | EKG REPORT ---
SEVERITY:- ABNORMAL ECG - SINUS RHYTHM BORDERLINE R WAVE PROGRESSION, ANTERIOR LEADS ABNORMAL T, CONSIDER ISCHEMIA, LATERAL LEADS : Confirmed by: Oriana Paniagua 10-Feb-2018 07:11:05
== END 2018-02-09 22:06 | disposition home or self-care (01) ==
LOC: ER 17:25
DX: I10 Essential (primary) hypertension (principal); Z79.899 Other long term (current) drug therapy; N19 Unspecified kidney failure; R60.0 Localized edema; E11.9 Type 2 diabetes mellitus without complications
CPT/HCPCS: 93005; 99284; 96374; 36415; 85025; 85610; 80053; 84484; 83880; 71045; 93010; J1940

== ENCOUNTER 2018-03-12 12:22 | Emergency (ER) | payer BC ==
--- NOTE | 2018-03-12 12:48 | ER Document Report ---
ED Medical Screen (RME) - General Chief Complaint: Abdominal Swelling Stated Complaint: FLUID IN ABDOMINAL AREA,PAIN Time Seen by Provider: 03/12/18 12:41 Notes: 42 years old female with a history of chronic venous stasis presents today with increased swelling of the lower extremity as well as abdomen giving rise to difficulty in breathing. She has almost like anasarca type of swelling starting from the upper part of the abdomen all the way to the toe. With varying 3-4+ pitting edema. TRAVEL OUTSIDE OF THE [place] IN LAST 30 DAYS: No - Related Data Allergies/Adverse Reactions: No Known Allergies Allergy (Verified 03/12/18 12:23) Past Medical History - Social History Frequency of alcohol use: None Drug Abuse: None - Past Medical History Cardiac Medical History: Reports: Hx Hypercholesterolemia, Hx Hypertension Endocrine Medical History: Reports: Hx Diabetes Mellitus Type 2 Renal/ Medical History: Reports: Hx End Stage Renal Disease. Denies: Hx Peritoneal Dialysis Past Surgical History: Reports: Hx Tonsillectomy - Immunizations History of Influenza Vaccine for 12/2016 - 05/2017 Season: No Physical Exam - Vital signs Vitals: Temp Pulse Resp BP Pulse Ox 97.7 F 87 14 165/100 H 96 03/12/18 12:24 03/12/18 12:24 03/12/18 12:24 03/12/18 12:24 03/12/18 12:24 Course - Vital Signs Vital signs: Temp Pulse Resp BP Pulse Ox 97.7 F 87 14 165/100 H 96 03/12/18 12:24 03/12/18 12:24 03/12/18 12:24 03/12/18 12:24 03/12/18 12:24
[2018-03-12 13:17] LABS: ABSOLUTE BASOPHILS # (AUTO) 0.1 10^3/uL (0.0-0.2); ABSOLUTE EOSINOPHILS # (AUTO) 0.1 10^3/uL (0.0-0.6); ABSOLUTE LYMPHOCYTES (AUTO) 1.1 10^3/uL (0.5-4.7); ABSOLUTE MONOCYTES (AUTO) 0.5 10^3/uL (0.1-1.4); ABSOLUTE NEUT (AUTO) 6.3 10^3/uL (1.7-8.2); BASOPHILS % (AUTO) 0.8 % (0-2); EOSINOPHILS % (AUTO) 1.3 % (0-6); HEMATOCRIT 33.3 % (36.0-47.0); HEMOGLOBIN 10.2 g/dL (12.0-15.5); LYMPHOCYTES % (AUTO) 13.7 % (13-45); MEAN CORPUSCULAR HEMOGLOBIN 22.7 pg (27.0-33.4); MEAN CORPUSCULAR HGB CONC 30.6 g/dL (32.0-36.0); MEAN CORPUSCULAR VOLUME 74 fl (80-97); MONOCYTES % (AUTO) 6.3 % (3-13); PLATELET COUNT 355 10^3/uL (150-450); RED CELL DISTRIBUTION WIDTH 17.6 % (11.5-14.0); SEGMENTED NEUTROPHILS % (AUTO) 77.9 % (42-78); TOTAL CELLS COUNTED % (AUTO) 100 %; WHITE BLOOD COUNT 8.1 10^3/uL (4.0-10.5)
[2018-03-12 13:36] LABS: APPEARANCE,URINE CLEAR; BILIRUBIN,URINE NEGATIVE (NEGATIVE); COLOR,URINE YELLOW; GLUCOSE, URINE >=500 mg/dL (NEGATIVE); KETONES,URINE NEGATIVE (NEGATIVE); LEUKOCYTE ESTERASE,URINE NEGATIVE (NEGATIVE); NITRITE,URINE NEGATIVE (NEGATIVE); PROTEIN,URINE >=500 mg/dL (NEGATIVE); URINE SPECIFIC GRAVITY 1.016; UROBILINOGEN,URINE NEGATIVE mg/dL (<2.0)
[2018-03-12 13:38] LABS: ALANINE AMINOTRANSFERASE 18 U/L (9-52); ALBUMIN 2.4 g/dL (3.5-5.0); ALKALINE PHOSPHATASE 87 U/L (38-126); ANION GAP 6 (5-19); ASPARTATE AMINO TRANSFERASE 12 U/L (14-36); BILIRUBIN,DIRECT 0.2 mg/dL (0.0-0.4); BILIRUBIN,TOTAL 0.3 mg/dL (0.2-1.3); BLOOD UREA NITROGEN 40 mg/dL (7-20); CALCIUM 8.2 mg/dL (8.4-10.2); CARBON DIOXIDE 26 mmol/L (22-30); CHLORIDE 111 mmol/L (98-107); GLUCOSE 260 mg/dL (75-110); POTASSIUM 5.2 mmol/L (3.6-5.0); SODIUM 142.9 mmol/L (137-145); TOTAL PROTEIN 5.4 g/dL (6.3-8.2)
--- NOTE | 2018-03-12 13:40 | RADIOLOGY REPORT (SQ) ---
EXAM DESCRIPTION: CHEST SINGLE VIEW COMPLETED DATE/TIME: 03/12/2018 1:20 pm REASON FOR STUDY: chf COMPARISON: 02/09/2018 EXAM PARAMETERS: NUMBER OF VIEWS: One view. TECHNIQUE: Single frontal radiographic view of the chest acquired. RADIATION DOSE: NA LIMITATIONS: None. FINDINGS: LUNGS AND PLEURA: Unchanged small bilateral pleural effusions. Low volume examination. MEDIASTINUM AND HILAR STRUCTURES: No masses. Contour normal. HEART AND VASCULAR STRUCTURES: Cardiomegaly. BONES: No acute findings. HARDWARE: None in the chest. OTHER: No other significant finding. IMPRESSION: Cardiomegaly with unchanged small bilateral pleural effusions on low volume AP examinati on. No focal airspace opacity. TECHNICAL DOCUMENTATION: JOB ID: [id number] [employer]- All Rights Reserved Reading location - IP/workstation name: [email or web address]
[2018-03-12 13:46] LABS: TROPONIN I 0.021 ng/mL
[2018-03-12 13:51] LABS: FREE T3 3.83 pg/mL (2.77-5.27); FREE T4 (FREE THYROXINE) 1.37 ng/dL (0.78-2.19)
[2018-03-12] MEDS ORDERED: FUROSEMIDE INJ/PF 40 MG/4 ML SDV IV ONE (15:20)
--- NOTE | 2018-03-12 15:55 | ER Document Report ---
ED General - General Chief Complaint: Abdominal Swelling Stated Complaint: FLUID IN ABDOMINAL AREA,PAIN Time Seen by Provider: 03/12/18 12:41 Mode of Arrival: Ambulatory Information source: Patient Notes: Patient is a 42-year-old female who presents to the emergency department with multiple complaints today. Patient reports increased shortness of breath and abdomen swelling over the last several months. She states that she was here approximately 1 month ago and she was offered admission however she shows to follow-up with her primary care provider. She reports that she has a history of insulin-dependent diabetes, hypertension, CHF and chronic kidney disease. She states that she is establishing care currently with Dr. Schuster, she has an appointment later this month. TRAVEL OUTSIDE OF THE [place] IN LAST 30 DAYS: No - Related Data Allergies/Adverse Reactions: No Known Allergies Allergy (Verified 03/12/18 12:23) Past Medical History - General Information source: Patient - Social History Smoking Status: Never Smoker Frequency of alcohol use: None Drug Abuse: None Family History: CAD, DM, Hypertension, Malignancy Patient has suicidal ideation: No Patient has homicidal ideation: No - Past Medical History Cardiac Medical History: Reports: Hx Hypercholesterolemia, Hx Hypertension Endocrine Medical History: Reports: Hx Diabetes Mellitus Type 2 Renal/ Medical History: Reports: Hx End Stage Renal Disease. Denies: Hx Peritoneal Dialysis Past Surgical History: Reports: Hx Tonsillectomy - Immunizations Immunizations up to date: Yes Review of Systems - Review of Systems Respiratory: Short of breath Gastrointestinal: Abdomen distended Musculoskeletal: Leg swelling, Ankle swelling Physical Exam - Vital signs Vitals: Temp Pulse Resp BP Pulse Ox 97.7 F 87 14 165/100 H 96 03/12/18 12:24 03/12/18 12:24 03/12/18 12:24 03/12/18 12:24 03/12/18 12:24 - Notes Notes: PHYSICAL EXAMINATION: GENERAL: Well-appearing, well-nourished and in no acute distress. HEAD: Atraumatic, normocephalic. EYES: Pupils equal round and reactive to light, extraocular movements intact, conjunctiva are normal. ENT: Nares patent, oropharynx clear without exudates. Moist mucous membranes. NECK: Normal range of motion, supple without lymphadenopathy LUNGS: Breath sounds clear to auscultation bilaterally and equal. No wheezes rales or rhonchi. HEART: Regular rate and rhythm without murmurs ABDOMEN: Soft, large, nontender, distended abdomen. No guarding, no rebound. No masses appreciated. Female : No CVA tenderness. Musculoskeletal: Normal range of motion, 3+ pitting edema. No cyanosis. NEUROLOGICAL: Cranial nerves grossly intact. Normal speech, normal gait. Normal sensory, motor exams PSYCH: Normal mood, normal affect. SKIN: Warm, Dry, normal turgor, no rashes or lesions noted. Course - Vital Signs Vital signs: Temp Pulse Resp BP Pulse Ox 97.2 F 80 13 183/102 H 94 03/12/18 19:30 03/12/18 19:30 03/12/18 19:30 03/12/18 19:30 03/12/18 19:30 - Laboratory Result Diagrams: 03/12/18 13:05 03/12/18 13:05 Laboratory results interpreted by me: 03/12/18 03/12/18 03/12/18 13:00 13:05 13:05 Hgb 10.2 L Hct 33.3 L MCV 74 L MCH 22.7 L MCHC 30.6 L RDW 17.6 H Potassium 5.2 H Chloride 111 H BUN 40 H Creatinine 2.62 H Est GFR ( Amer) 24 L Est GFR (Non-Af Amer) 20 L Glucose 260 H Calcium 8.2 L AST 12 L NT-Pro-B Natriuret Pep Total Protein 5.4 L Albumin 2.4 L Urine Protein >=500 H Urine Glucose (UA) >=500 H Urine Blood SMALL H 03/12/18 13:05 Hgb Hct MCV MCH MCHC RDW Potassium Chloride BUN Creatinine Est GFR ( Amer) Est GFR (Non-Af Amer) Glucose Calcium AST NT-Pro-B Natriuret Pep 16098 H Total Protein Albumin Urine Protein Urine Glucose (UA) Urine Blood Discharge - Discharge Clinical Impression: Elevated brain natriuretic peptide (BNP) level Hypertension Qualifiers: Hypertension type: unspecified Qualified Code(s): I10 - Essential (primary) hypertension CKD (chronic kidney disease) Qualifiers: Chronic kidney disease stage: unspecified stage Qualified Code(s): N18.9 - Chronic kidney disease, unspecified Condition: Stable Disposition: HOME, SELF-CARE Additional Instructions: As we discussed, please call the primary care providers that I have outlined for you below. See which one of them can get you in to establish care. In the meanwhile if On license of [facility] happens to come through with your referrals please follow up with seeing the rehab aid and the clamp jig assembler. Return to the emergency department if you experience worsening symptoms, development of chest pain, worsening shortness of breath or any other symptom that is concerning to you. Referrals: THOMAS DOWNING MD [ACTIVE STAFF] - Follow up as needed KAZ ACUNA MD [ACTIVE STAFF] - Follow up as needed JL PEREZ MD [ACTIVE STAFF] - Follow up as needed
[2018-03-12] MEDS ORDERED: FUROSEMIDE INJ/PF 20 MG/2 ML SDV IV ONE (17:07)
[2018-03-12] MEDS ORDERED: METOPROLOL TARTRATE 50 MG TABLET PO ONE (18:10)
[2018-03-12 19:39] VITALS: BP 183/102
== END 2018-03-12 19:39 | disposition home or self-care (01) ==
LOC: ER 12:22
DX: R10.10 Upper abdominal pain, unspecified (principal); R79.89 Other specified abnormal findings of blood chemistry; E11.22 Type 2 diabetes mellitus with diabetic chronic kidney disease; I12.0 Hypertensive chronic kidney disease with stage 5 chronic kidney disease or end stage renal disease; N18.6 End stage renal disease; E78.00 Pure hypercholesterolemia, unspecified
CPT/HCPCS: 96376; 99284; 96374; 36415; 84439; 85025; 85730; 80053; 81001; 84484; 84481; 83880; 71045; J1940 ×2